=== PATIENT | female | born 1975 | race Caucasian/White ===

== ENCOUNTER → 2017-09-18 | Outpatient (CLI) | payer OTHER | END | disposition home or self-care (01) | LOC: LAB 18:06 | DX: H10.30 Unspecified acute conjunctivitis, unspecified eye (principal) | CPT/HCPCS: 87070; 87205 ==

== ENCOUNTER → 2019-01-28 | Outpatient (CLI) | payer OTHER ==
[~2019-01-28] MED LIST: ALBU90OI6; LEVFLO500 PO; LORA1 PO; Lopressor 25 mg25 MG
== END | disposition home or self-care (01) ==
LOC: LAB 17:56 → LAB SHORT 17:56
DX: D51.8 Other vitamin B12 deficiency anemias (principal)
CPT/HCPCS: 82607; 82746

== ENCOUNTER 2019-07-01 03:11 | Emergency (ER) | payer OTHER ==
[~2019-07-01] VITALS: Ht 170.2 cm; Wt 129.7 kg
[~2019-07-01 03:11] MED LIST changes: -Lopressor 25 mg25 MG; +Lopressor 25 mg25 MG PO
[2019-07-01 03:53] LABS: BASOPHILS ABSOLUTE AUTO 0.03 K/mm3 (0.00-0.23); BASOPHILS PERCENT AUTO 0 % (0-2); EOSINOPHILS ABSOLUTE AUTO 0.32 K/mm3 (0.00-0.68); EOSINOPHILS PERCENT AUTO 5 % (0-6); Hemoglobin 15.4 g/dL (11.5-16.0); IMMATURE GRAN ABSOLUTE AUTO 0.02 K/mm3 (0.00-0.10); IMMATURE GRAN PERCENT AUTO 0 % (0-1); LYMPHOCYTES ABSOLUTE AUTO 1.34 K/mm3 (0.84-5.20); LYMPHOCYTES PERCENT AUTO 20 % (21-46); MONOCYTES ABSOLUTE AUTO 0.45 K/mm3 (0.16-1.47); MONOCYTES PERCENT AUTO 7 % (4-13); Mean Corpuscular HGB 32.2 pg (26.0-34.0); Mean Corpuscular HGB Conc 32.8 g/dL (31.5-36.5); Mean Corpuscular Volume 98 fL (80-100); Mean Platelet Volume 10.2 fL (9.1-12.4); NEUTROPHILS ABSOLUTE AUTO 4.59 K/mm3 (1.96-9.15); NEUTROPHILS PERCENT AUTO 68 % (41-73); Platelet Count 237 K/mm3 (150-400); RDW Coefficient Variation 12.3 % (11.7-14.2); RDW Standard Deviation 44.8 fL (35.1-46.3); Red Blood Cell Count 4.79 M/mm3 (3.80-5.20); White Blood Cell Count 6.75 K/mm3 (4.00-11.30)
[2019-07-01 04:13] LABS: Alanine Aminotransfer (ALT/SGP 49 U/L (12-78); Albumin/Globulin Ratio 0.8 (0.8-1.8); Alk Phos 109 U/L (50-136); Anion Gap 6 mmol/L (6-16); Aspartate Aminotrans (AST/SGOT 34 U/L (12-37); Bilirubin, Total 0.3 mg/dL (0.1-1.0); Blood Urea Nitrogen 7 mg/dL (8-24); CO2, Blood 28 mmol/L (21-32); Calcium, Blood 8.6 mg/dL (8.5-10.1); Chloride, Blood 105 mmol/L (98-108); Free Thyroxine 1.05 ng/dL (0.70-1.60); Globulin, Blood 3.8 g/dL (2.2-4.0); Glomerular Filtration Rate >60 (60-); Glucose, Blood 99 mg/dL (70-99); Potassium, Blood 4.6 mmol/L (3.5-5.5); Sodium, Blood 139 mmol/L (136-145); Total Protein, Blood 6.8 g/dL (6.4-8.2); Troponin I <0.015 ng/mL (0.000-0.040)
== END 2019-07-01 05:18 | disposition home or self-care (01) ==
LOC: ER 03:11
PROVIDERS: Emergency Medicine
DX: R00.2 Palpitations (principal); F41.9 Anxiety disorder, unspecified; I10 Essential (primary) hypertension; J45.909 Unspecified asthma, uncomplicated; F17.210 Nicotine dependence, cigarettes, uncomplicated; Z88.1 Allergy status to other antibiotic agents; Z88.0 Allergy status to penicillin; Z88.2 Allergy status to sulfonamides; Z88.5 Allergy status to narcotic agent; Z79.899 Other long term (current) drug therapy
CPT/HCPCS: 36415; 80053; 84439; 84443; 84484; 85025; 93005; 93010; 96361; 96374; 99285-25; J2060; J7030

== ENCOUNTER → 2019-09-08 | Outpatient (CLI) | payer OTHER | LOC: LAB SHORT 07:55 → PLD 07:55 | DX: D23.62 Other benign neoplasm of skin of left upper limb, including shoulder (principal) | CPT/HCPCS: 88305 ==

== ENCOUNTER 2020-01-06 22:49 | Emergency (ER) | payer OTHER ==
[~2020-01-06] VITALS: Ht 170.2 cm; Wt 129.3 kg
[2020-01-06] MEDS ORDERED: LOSA50 PO (23:00)
[2020-01-06 23:27] LABS: BASOPHILS ABSOLUTE AUTO 0.02 K/mm3 (0.00-0.23); BASOPHILS PERCENT AUTO 0 % (0-2); EOSINOPHILS ABSOLUTE AUTO 0.29 K/mm3 (0.00-0.68); EOSINOPHILS PERCENT AUTO 4 % (0-6); Hematocrit 46.2 % (33.0-51.0); Hemoglobin 15.2 g/dL (11.5-16.0); IMMATURE GRAN ABSOLUTE AUTO 0.01 K/mm3 (0.00-0.10); IMMATURE GRAN PERCENT AUTO 0 % (0-1); LYMPHOCYTES ABSOLUTE AUTO 1.54 K/mm3 (0.84-5.20); LYMPHOCYTES PERCENT AUTO 19 % (21-46); MONOCYTES ABSOLUTE AUTO 0.67 K/mm3 (0.16-1.47); MONOCYTES PERCENT AUTO 8 % (4-13); Mean Corpuscular HGB 31.4 pg (26.0-34.0); Mean Corpuscular HGB Conc 32.9 g/dL (31.5-36.5); Mean Corpuscular Volume 96 fL (80-100); NEUTROPHILS PERCENT AUTO 69 % (41-73); Platelet Count 254 K/mm3 (150-400); RDW Coefficient Variation 13.3 % (11.7-14.2); RDW Standard Deviation 47.4 fL (35.1-46.3); Red Blood Cell Count 4.84 M/mm3 (3.80-5.20); White Blood Cell Count 8.13 K/mm3 (4.00-11.30)
[2020-01-06 23:47] LABS: Alanine Aminotransfer (ALT/SGP 43 U/L (12-78); Albumin, Blood 3.1 g/dL (3.4-5.0); Albumin/Globulin Ratio 0.7 (0.8-1.8); Alk Phos 105 U/L (50-136); Anion Gap 9 mmol/L (6-16); Aspartate Aminotrans (AST/SGOT 29 U/L (12-37); Bilirubin, Total 0.5 mg/dL (0.1-1.0); Blood Urea Nitrogen 8 mg/dL (8-24); Bun/Creatinine Ratio 12.2 (12.0-20.0); CO2, Blood 21 mmol/L (21-32); Calcium, Blood 8.3 mg/dL (8.5-10.1); Chloride, Blood 109 mmol/L (98-108); Creatinine, Blood 0.65 mg/dL (0.40-1.00); Globulin, Blood 4.3 g/dL (2.2-4.0); Glomerular Filtration Rate >60 (60-); Glucose, Blood 81 mg/dL (70-99); Potassium, Blood 4.2 mmol/L (3.5-5.5); Sodium, Blood 139 mmol/L (136-145); Total Protein, Blood 7.4 g/dL (6.4-8.2); Troponin I <0.015 ng/mL (0.000-0.040)
== END 2020-01-07 02:51 | disposition home or self-care (01) ==
LOC: ER 22:49
PROVIDERS: Emergency Medicine
DX: R00.2 Palpitations (principal); I10 Essential (primary) hypertension; I48.91 Unspecified atrial fibrillation; D64.9 Anemia, unspecified; J45.909 Unspecified asthma, uncomplicated; F17.210 Nicotine dependence, cigarettes, uncomplicated; Z88.1 Allergy status to other antibiotic agents; Z88.8 Allergy status to other drugs, medicaments and biological substances; Z88.0 Allergy status to penicillin; Z88.2 Allergy status to sulfonamides; Z88.5 Allergy status to narcotic agent; Z79.899 Other long term (current) drug therapy; Z79.51 Long term (current) use of inhaled steroids
CPT/HCPCS: 36415; 71046; 80053; 84484; 85025; 93005; 93010; 99285-25

== ENCOUNTER 2020-12-03 02:22 | Emergency (ER) | payer OTHER ==
[~2020-12-03] VITALS: Ht 170.2 cm; Wt 136.1 kg
[~2020-12-03 02:22] MED LIST changes: +LOSA50 PO
[2020-12-03 02:51] LABS: Anion Gap 6 mmol/L (6-16); Blood Urea Nitrogen 7 mg/dL (8-24); Bun/Creatinine Ratio 11.6 (12.0-20.0); CO2, Blood 24 mmol/L (21-32); Calcium, Blood 8.6 mg/dL (8.5-10.1); Chloride, Blood 103 mmol/L (98-108); Creatinine, Blood 0.61 mg/dL (0.40-1.00); Glomerular Filtration Rate >60 (60-); Glucose, Blood 135 mg/dL (70-99); Potassium, Blood 4.3 mmol/L (3.5-5.5); Sodium, Blood 133 mmol/L (136-145)
[2020-12-03] MEDS ORDERED: Prednisone50 MG PO (04:19)
[2020-12-03] MEDS ORDERED: ALBU90OI INH (04:19)
== END 2020-12-03 05:03 | disposition home or self-care (01) ==
LOC: ER 02:22
PROVIDERS: Student in an Organized Health Care Education/Training Program
DX: I48.91 Unspecified atrial fibrillation (principal); J45.901 Unspecified asthma with (acute) exacerbation; I10 Essential (primary) hypertension; F17.210 Nicotine dependence, cigarettes, uncomplicated; Z88.2 Allergy status to sulfonamides; Z88.1 Allergy status to other antibiotic agents; Z88.0 Allergy status to penicillin; Z88.5 Allergy status to narcotic agent; Z79.899 Other long term (current) drug therapy
CPT/HCPCS: 36415; 80048; 93005; 93010; 94640; 96374; 99285-25; A9270-GY; J7512

== ENCOUNTER 2021-03-04 05:31 | Emergency (ER) | payer OTHER ==
[~2021-03-04] VITALS: Ht 170.2 cm; Wt 140.6 kg
[~2021-03-04 05:31] MED LIST changes: +ALBU90OI INH; +Prednisone50 MG PO
[2021-03-04 07:42] LABS: BASOPHILS ABSOLUTE AUTO 0.04 K/mm3 (0.00-0.23); BASOPHILS PERCENT AUTO 1 % (0-2); EOSINOPHILS PERCENT AUTO 2 % (0-6); Hematocrit 41.9 % (33.0-51.0); Hemoglobin 13.5 g/dL (11.5-16.0); IMMATURE GRAN ABSOLUTE AUTO 0.03 K/mm3 (0.00-0.10); IMMATURE GRAN PERCENT AUTO 0 % (0-1); LYMPHOCYTES ABSOLUTE AUTO 1.09 K/mm3 (0.84-5.20); LYMPHOCYTES PERCENT AUTO 13 % (21-46); MONOCYTES ABSOLUTE AUTO 0.61 K/mm3 (0.16-1.47); MONOCYTES PERCENT AUTO 7 % (4-13); Mean Corpuscular HGB 28.2 pg (26.0-34.0); Mean Corpuscular HGB Conc 32.2 g/dL (31.5-36.5); Mean Corpuscular Volume 88 fL (80-100); Mean Platelet Volume 9.9 fL (9.1-12.4); NEUTROPHILS ABSOLUTE AUTO 6.35 K/mm3 (1.96-9.15); NEUTROPHILS PERCENT AUTO 76 % (41-73); Platelet Count 268 K/mm3 (150-400); RDW Coefficient Variation 14.6 % (11.7-14.2); RDW Standard Deviation 46.6 fL (35.1-46.3); Red Blood Cell Count 4.79 M/mm3 (3.80-5.20); White Blood Cell Count 8.32 K/mm3 (4.00-11.30)
== END 2021-03-04 08:27 | disposition home or self-care (01) ==
LOC: ER 05:31
PROVIDERS: Emergency Medicine
DX: R04.0 Epistaxis (principal); I48.91 Unspecified atrial fibrillation; F17.210 Nicotine dependence, cigarettes, uncomplicated; Z79.899 Other long term (current) drug therapy; Z88.1 Allergy status to other antibiotic agents; Z88.0 Allergy status to penicillin; Z88.2 Allergy status to sulfonamides; Z88.5 Allergy status to narcotic agent
CPT/HCPCS: 36415; 85025; 99283

== ENCOUNTER 2021-04-15 20:26 | Emergency (ER) | payer OTHER ==
[~2021-04-15] VITALS: Ht 170.2 cm; Wt 136.1 kg
[2021-04-15 21:06] LABS: BASOPHILS ABSOLUTE AUTO 0.03 K/mm3 (0.00-0.23); BASOPHILS PERCENT AUTO 0 % (0-2); EOSINOPHILS ABSOLUTE AUTO 0.16 K/mm3 (0.00-0.68); EOSINOPHILS PERCENT AUTO 2 % (0-6); Hematocrit 42.4 % (33.0-51.0); Hemoglobin 13.4 g/dL (11.5-16.0); IMMATURE GRAN ABSOLUTE AUTO 0.02 K/mm3 (0.00-0.10); IMMATURE GRAN PERCENT AUTO 0 % (0-1); LYMPHOCYTES ABSOLUTE AUTO 1.41 K/mm3 (0.84-5.20); LYMPHOCYTES PERCENT AUTO 19 % (21-46); MONOCYTES ABSOLUTE AUTO 0.43 K/mm3 (0.16-1.47); MONOCYTES PERCENT AUTO 6 % (4-13); Mean Corpuscular HGB 27.2 pg (26.0-34.0); Mean Corpuscular HGB Conc 31.6 g/dL (31.5-36.5); Mean Corpuscular Volume 86 fL (80-100); Mean Platelet Volume 9.9 fL (9.1-12.4); NEUTROPHILS ABSOLUTE AUTO 5.54 K/mm3 (1.96-9.15); NEUTROPHILS PERCENT AUTO 73 % (41-73); Platelet Count 326 K/mm3 (150-400); RDW Coefficient Variation 14.7 % (11.7-14.2); RDW Standard Deviation 46.8 fL (35.1-46.3); Red Blood Cell Count 4.92 M/mm3 (3.80-5.20); White Blood Cell Count 7.59 K/mm3 (4.00-11.30)
[2021-04-15 21:51] LABS: Alanine Aminotransfer (ALT/SGP 44 U/L (12-78); Albumin, Blood 2.8 g/dL (3.4-5.0); Albumin/Globulin Ratio 0.6 (0.8-1.8); Alk Phos 117 U/L (50-136); Anion Gap 6 mmol/L (6-16); Aspartate Aminotrans (AST/SGOT 35 U/L (12-37); Bilirubin, Total 0.3 mg/dL (0.1-1.0); Blood Urea Nitrogen 7 mg/dL (8-24); Bun/Creatinine Ratio 10.4 (12.0-20.0); CO2, Blood 27 mmol/L (21-32); Calcium, Blood 9.1 mg/dL (8.5-10.1); Chloride, Blood 101 mmol/L (98-108); Creatinine, Blood 0.67 mg/dL (0.40-1.00); Globulin, Blood 4.5 g/dL (2.2-4.0); Glomerular Filtration Rate >60 (60-); Glucose, Blood 108 mg/dL (70-99); Potassium, Blood 4.3 mmol/L (3.5-5.5); Sodium, Blood 134 mmol/L (136-145); Total Protein, Blood 7.3 g/dL (6.4-8.2); Troponin I <0.015 ng/mL (0.000-0.040)
== END 2021-04-15 22:18 | disposition home or self-care (01) ==
LOC: ER 20:26
PROVIDERS: Family Medicine
DX: I48.91 Unspecified atrial fibrillation (principal); F17.210 Nicotine dependence, cigarettes, uncomplicated; I10 Essential (primary) hypertension; J45.909 Unspecified asthma, uncomplicated; Z79.899 Other long term (current) drug therapy; Z88.1 Allergy status to other antibiotic agents; Z88.0 Allergy status to penicillin; Z88.2 Allergy status to sulfonamides; Z88.5 Allergy status to narcotic agent
CPT/HCPCS: 71045; 80053; 83880; 84484; 85025; 93005; 93010; 99285-25

== ENCOUNTER 2021-06-18 10:40 | Emergency (ER) | payer OTHER ==
[~2021-06-18] VITALS: Ht 170.2 cm; Wt 136.1 kg
[2021-06-18] MEDS ORDERED: DILT30 PO (11:03)
[2021-06-18 11:45] LABS: BASOPHILS ABSOLUTE AUTO 0.05 K/mm3 (0.00-0.23); BASOPHILS PERCENT AUTO 1 % (0-2); EOSINOPHILS ABSOLUTE AUTO 0.38 K/mm3 (0.00-0.68); EOSINOPHILS PERCENT AUTO 4 % (0-6); Hematocrit 44.5 % (33.0-51.0); Hemoglobin 13.7 g/dL (11.5-16.0); IMMATURE GRAN ABSOLUTE AUTO 0.03 K/mm3 (0.00-0.10); IMMATURE GRAN PERCENT AUTO 0 % (0-1); LYMPHOCYTES ABSOLUTE AUTO 1.31 K/mm3 (0.84-5.20); LYMPHOCYTES PERCENT AUTO 14 % (21-46); MONOCYTES ABSOLUTE AUTO 0.64 K/mm3 (0.16-1.47); MONOCYTES PERCENT AUTO 7 % (4-13); Mean Corpuscular HGB Conc 30.8 g/dL (31.5-36.5); Mean Corpuscular Volume 88 fL (80-100); Mean Platelet Volume 10.3 fL (9.1-12.4); NEUTROPHILS ABSOLUTE AUTO 6.74 K/mm3 (1.96-9.15); NEUTROPHILS PERCENT AUTO 74 % (41-73); Platelet Count 340 K/mm3 (150-400); RDW Standard Deviation 48.1 fL (35.1-46.3); Red Blood Cell Count 5.08 M/mm3 (3.80-5.20); White Blood Cell Count 9.15 K/mm3 (4.00-11.30)
[2021-06-18 12:17] LABS: Alanine Aminotransfer (ALT/SGP 36 U/L (12-78); Albumin, Blood 2.9 g/dL (3.4-5.0); Albumin/Globulin Ratio 0.7 (0.8-1.8); Alk Phos 113 U/L (50-136); Anion Gap 4 mmol/L (6-16); Aspartate Aminotrans (AST/SGOT 31 U/L (12-37); Bilirubin, Total 0.4 mg/dL (0.1-1.0); Blood Urea Nitrogen 5 mg/dL (8-24); CO2, Blood 27 mmol/L (21-32); Calcium, Blood 8.8 mg/dL (8.5-10.1); Chloride, Blood 105 mmol/L (98-108); Creatinine, Blood 0.72 mg/dL (0.40-1.00); Globulin, Blood 4.4 g/dL (2.2-4.0); Glomerular Filtration Rate >60 (60-); Glucose, Blood 147 mg/dL (70-99); Magnesium, Blood 1.9 mg/dL (1.6-2.4); Potassium, Blood 4.6 mmol/L (3.5-5.5); Sodium, Blood 136 mmol/L (136-145); Total Protein, Blood 7.3 g/dL (6.4-8.2); Troponin I <0.015 ng/mL (0.000-0.040)
== END 2021-06-18 13:40 | disposition home or self-care (01) ==
LOC: ER 10:40
PROVIDERS: Emergency Medicine
DX: I48.0 Paroxysmal atrial fibrillation (principal); D64.9 Anemia, unspecified; J45.909 Unspecified asthma, uncomplicated; I10 Essential (primary) hypertension; F17.210 Nicotine dependence, cigarettes, uncomplicated; Z79.899 Other long term (current) drug therapy
CPT/HCPCS: 71045; 80053; 83735; 83880; 84484; 85025; 93005; 93010; 99285-25

== ENCOUNTER → 2023-12-14 | Outpatient (CLI) | payer OTHER ==
[~2023-12-14] MED LIST changes: +DILT30 PO
[2023-12-14 17:28] LABS: BASOPHILS ABSOLUTE AUTO 0.05 K/mm3 (0.00-0.23); BASOPHILS PERCENT AUTO 1 % (0-2); EOSINOPHILS ABSOLUTE AUTO 0.28 K/mm3 (0.00-0.68); EOSINOPHILS PERCENT AUTO 3 % (0-6); Hematocrit 38.8 % (33.0-51.0); Hemoglobin 10.9 g/dL (11.5-16.0); IMMATURE GRAN ABSOLUTE AUTO 0.02 K/mm3 (0.00-0.10); IMMATURE GRAN PERCENT AUTO 0 % (0-1); LYMPHOCYTES PERCENT AUTO 19 % (21-46); MONOCYTES ABSOLUTE AUTO 0.61 K/mm3 (0.16-1.47); MONOCYTES PERCENT AUTO 7 % (4-13); Mean Corpuscular HGB Conc 28.1 g/dL (31.5-36.5); Mean Corpuscular Volume 75 fL (80-100); Mean Platelet Volume 10.5 fL (9.1-12.4); NEUTROPHILS ABSOLUTE AUTO 6.32 K/mm3 (1.96-9.15); NEUTROPHILS PERCENT AUTO 70 % (41-73); Platelet Count 391 K/mm3 (150-400); RDW Standard Deviation 47.8 fL (35.1-46.3); Red Blood Cell Count 5.19 M/mm3 (3.80-5.20); White Blood Cell Count 8.98 K/mm3 (4.00-11.30)
[2023-12-14 17:38] LABS: Albumin, Blood 3.3 g/dL (3.4-5.0); Albumin/Globulin Ratio 0.7 (0.8-1.8); Bilirubin, Total 0.4 mg/dL (0.1-1.0); Bun/Creatinine Ratio 17.2 (12.0-20.0); Calcium, Blood 9.6 mg/dL (8.5-10.1); Creatinine, Blood 0.7 mg/dL (0.40-1.00); Globulin, Blood 4.5 g/dL (2.2-4.0); Potassium, Blood 5.2 mmol/L (3.5-5.5); Thyroid Stimulating Hormone 2.31 uIU/mL (0.360-4.800); Total Protein, Blood 7.8 g/dL (6.4-8.2)
== END ==
LOC: LAB 16:01 → LAB SHORT 16:01
PROVIDERS: Nurse Practitioner Psychiatric/Mental Health
DX: F33.1 Major depressive disorder, recurrent, moderate (principal)
CPT/HCPCS: 80053; 84443; 85025

== ENCOUNTER → 2024-02-19 | Outpatient (CLI) | payer OTHER ==
[~2024-02-19] MED LIST changes: +MICONAZOLE NITR85 GM TOP; +NICO21TP TOP; +OXAYDO5 M1 PO; +THEREMS MULTI400 MCG PO; +TORSE20 PO; +XARELTO20 MG PO
== END | disposition home or self-care (01) ==
LOC: LAB SHORT 13:42 → LAB 13:42
DX: R21 Rash and other nonspecific skin eruption (principal)
CPT/HCPCS: 87070; 87075; 87076; 87077; 87147; 87185; 87205

== ENCOUNTER 2024-02-24 05:14 | Inpatient (IN) | payer OTHER ==
[~2024-02-24] VITALS: Ht 167.6 cm; Wt 143.6 kg
[~2024-02-24 05:14] MED LIST changes: -MICONAZOLE NITR85 GM TOP; -NICO21TP TOP; -OXAYDO5 M1 PO; -THEREMS MULTI400 MCG PO; -TORSE20 PO; -XARELTO20 MG PO
[2024-02-24 06:09] LABS: BASOPHILS ABSOLUTE AUTO 0.04 K/mm3 (0.00-0.23); BASOPHILS PERCENT AUTO 0 % (0-2); EOSINOPHILS ABSOLUTE AUTO 0.26 K/mm3 (0.00-0.68); EOSINOPHILS PERCENT AUTO 3 % (0-6); Hematocrit 30.4 % (33.0-51.0); Hemoglobin 8.9 g/dL (11.5-16.0); IMMATURE GRAN ABSOLUTE AUTO 0.02 K/mm3 (0.00-0.10); IMMATURE GRAN PERCENT AUTO 0 % (0-1); LYMPHOCYTES ABSOLUTE AUTO 1.59 K/mm3 (0.84-5.20); LYMPHOCYTES PERCENT AUTO 18 % (21-46); MONOCYTES ABSOLUTE AUTO 0.47 K/mm3 (0.16-1.47); MONOCYTES PERCENT AUTO 5 % (4-13); Mean Corpuscular HGB 21.2 pg (26.0-34.0); Mean Corpuscular HGB Conc 29.3 g/dL (31.5-36.5); Mean Corpuscular Volume 72 fL (80-100); Mean Platelet Volume 9.4 fL (9.1-12.4); NEUTROPHILS ABSOLUTE AUTO 6.67 K/mm3 (1.96-9.15); NEUTROPHILS PERCENT AUTO 74 % (41-73); Platelet Count 440 K/mm3 (150-400); RDW Coefficient Variation 18.5 % (11.7-14.2); RDW Standard Deviation 48.1 fL (35.1-46.3); White Blood Cell Count 9.05 K/mm3 (4.00-11.30)
[2024-02-24 06:36] LABS: Albumin, Blood 2.6 g/dL (3.4-5.0); Albumin/Globulin Ratio 0.6 (0.8-1.8); Bilirubin, Total 0.3 mg/dL (0.1-1.0); Bun/Creatinine Ratio 13.4 (12.0-20.0); Calcium, Blood 8.2 mg/dL (8.5-10.1); Creatinine, Blood 0.6 mg/dL (0.40-1.00); Globulin, Blood 4.1 g/dL (2.2-4.0); Potassium, Blood 4.7 mmol/L (3.5-5.5); Total Protein, Blood 6.7 g/dL (6.4-8.2)
[2024-02-24] MEDS ORDERED: Ipratropium/Albuterol SulF 2.5-0.5MG/3 ML Amp INH ONE (07:30)
[2024-02-24] MEDS ORDERED: Ondansetron HCl 2 MG / ML 2ML Vial IV ONE (11:05)
[2024-02-24] MEDS ORDERED: HYDROmorphone HCl/Pf 1MG SYR IV ONE (11:05)
[2024-02-24] MEDS ORDERED: XARELTO20 MG PO (12:22)
[2024-02-24] MEDS ORDERED: FentaNYL Citrate 50 MCG/ML 2 ML Injection IV PRN (12:35)
[2024-02-24] MEDS ORDERED: LORazepam 1 MG Tab PO PRN (12:35)
[2024-02-24 12:54] LABS: International Normalized Ratio 1.3; Prothrombin Time Results 13.6 Sec (9.7-11.5)
[2024-02-24] MEDS ORDERED: dilTIAZem HCL 30 MG TAB PO SCH (13:00)
[2024-02-24] MEDS ORDERED: Metoprolol Tartrate 50 MG Tab PO SCH ×3 (13:00→21:00)
[2024-02-24] MEDS ORDERED: Dose Adjust by Pharmacy XX STA (13:02)
[2024-02-24] MEDS ORDERED: Heparin Sodium,Porcine/0.5 NS 500 ML IV SCH (13:05)
[2024-02-24] MEDS ORDERED: NS 1,000 ML IV SCH ×2 (14:00→21:15)
[2024-02-24 14:30] VITALS: BP 112/71
[2024-02-24] MEDS ORDERED: Famotidine 20 MG Tab PO SCH (16:30)
[2024-02-24 19:40] VITALS: BP 122/53
[2024-02-24] MEDS ORDERED: TORSE20 PO (19:48)
[2024-02-24] MEDS ORDERED: Heparin Sodium 5000 Units/ML 1ML MDV IV ONE (20:30)
[2024-02-24] MEDS ORDERED: Multivitamins 1 Tab PO ONE (20:45)
[2024-02-24] MEDS ORDERED: Folic Acid 1 MG TAB PO ONE (20:45)
[2024-02-24] MEDS ORDERED: Nicotine 21 MG PATCH TOP ONE (20:45)
[2024-02-24] MEDS ORDERED: Thiamine HCl 100 MG Tab PO ONE (20:45)
[2024-02-24] MEDS ORDERED: Miconazole Nitrate 2% 85 GM PWD TOP SCH (21:00)
[2024-02-24 23:51] VITALS: BP 116/77
[2024-02-25] MEDS ORDERED: FentaNYL Citrate 50 MCG/ML 2 ML Injection IV PRN (00:05)
--- NOTE | 2024-02-25 00:35 | NUR ---
PT IS ALERT AND ORIENTED X 4, COOPERATIVE WITH CARE AND ABLE TO MAKE NEEDS KNOWN. ANXIOUS AT TIMES. WHEN AWAKE PT ON 1.5L NC AND MAINTAINS 02 SATURATION ABOVE 90%. 1.5L NC IS PTS BASELINE AT HOME NOC AND PRN DURING DAY. PT DESATS WHILE SLEEPING AT TIMES, 4L NC WHEN ASLEEP AND MAINTAINS 02 SATURATION ABOVE 90%. PT'S HR AFIB 80'S-90'S, SHE DENIES CHEST PAIN/PRESSURE, BP STABLE. THE MAJORITY OF PT'S HOME MEDS ARE BEING STARTED TMR PER BC PT EXPERIENCED PAUSES IN HER HR WHILE IN ED. PT'S HOME MED REQ IS COMPLETE. PT BROUGHT HER MEDICATIONS IN WITH HER AND SAID THEY ARE ALL UP TO DATE. PT IS CONTINENT AND TOLERATES AMBULATING TO RESTROOM WITH SBA ASSIST WELL. TOES TO R FOOT ARE PURPLE AND PAINFUL. OF NOW, THE PLAN IS FOR PT TO SEE CRUZITO THIS WEEK IN HOSPITAL. PT BEING MEDICATED PER EMAR. BOTH IVS PATENT AND RUNNING HEPARIN AND NS PER EMAR. PT IS A PACK A DAY SMOKER AND SHE IS BEING MEDICATED PER EMAR. PT DRINKS 9-10 BEERS A DAY AND THE LAST TIME SHE HAD A DRINK WAS BETWEEN THE HOURS OF 7-10PM ON 02/23/24. SPOKE WITH MD AND HE OK'D STARTING TO GIVE PT BEER TOMORROW SHE SAID SHE DOES NOT PLAN TO QUIT ANY TIME SOON. RESPIRATORY THERAPY ON BOARD TREATING PT. PTS CIWA SCORES HAVE BEEN 0-2. PT CURRENTLY RESTING IN BED AND CALL LIGHT WITHIN REACH.
[2024-02-25] MEDS ORDERED: Ondansetron HCl 2 MG / ML 2ML Vial IV PRN (03:00)
[2024-02-25] MEDS ORDERED: OxyCODONE HCL 5 MG TAB PO PRN (03:00)
--- NOTE | 2024-02-25 03:02 | NUR ---
25-50MCG FETANYL ISN'T RELIEVING PT'S PAIN WELL SHE WOULD LIKE, SHE IS STILL IN A LOT OF PAIN. CALLED AND SPOKE WITH MD AND RELAYED TO HIM THAT PT DID NOT LIKE THE WAY DILAUDED MADE HER FEEL WHEN SHE HAD IT IN THE ER, AND CODEINE AND HYDROCODONE ARE ON HER ALLERGY LIST, WHICH SHE SAID THEY JUST MADE HER REALLY NAUSEOUS. MD ORDERED OXYCODONE FOR MODERATE PAIN, ZOFRAN AND LEAVING FETANYL AVAILABLE FOR SEVERE PAIN.
[2024-02-25 03:10] LABS: Hematocrit 31.3 % (33.0-51.0); Mean Corpuscular HGB 21.2 pg (26.0-34.0); Mean Corpuscular HGB Conc 28.8 g/dL (31.5-36.5); Mean Corpuscular Volume 74 fL (80-100); Mean Platelet Volume 9.3 fL (9.1-12.4); Platelet Count 382 K/mm3 (150-400); RDW Coefficient Variation 18.6 % (11.7-14.2); RDW Standard Deviation 49.4 fL (35.1-46.3); Red Blood Cell Count 4.25 M/mm3 (3.80-5.20); White Blood Cell Count 8.32 K/mm3 (4.00-11.30)
[2024-02-25 03:33] LABS: Bun/Creatinine Ratio 17.7 (12.0-20.0); Calcium, Blood 8.3 mg/dL (8.5-10.1); Creatinine, Blood 0.79 mg/dL (0.40-1.00); Potassium, Blood 4.4 mmol/L (3.5-5.5)
[2024-02-25] MEDS ORDERED: Dose Adjust by Pharmacy XX STA ×3 (03:37→18:36)
[2024-02-25] MEDS ORDERED: Heparin Sodium 5000 Units/ML 1ML MDV IV ONE (03:40)
--- NOTE | 2024-02-25 05:04 | NUR ---
PT DECIDED SHE WANTED TO WAIT FOR NEXT DOSE OF FETANYL BEFORE TRYING OXYCODONE. PT RECEIVED ANOTHER 50MCG FETANYL PER EMAR. SHE HAS BEEN RESTING IN BED SINCE. SHE REMAINS ON 4L NC AND MAINTAINING 02 SATURATION ABOVE 92%, SHE DENIES SOB. HR REMAINS IN AFIB, BP STABLE, AND NO COMPLAINS OF CHEST PAIN/PRESSURE. TOES TO R FOOT REMAIN DISCOLORED BUT WARM. PEDAL PULSES FAINT BUT PALPABLE. BOTH IV'S REMAIN PATENT,HEPARIN AND NS RUNNING PER EMAR. CALL LIGHT WITHIN REACH.
[2024-02-25 07:53] VITALS: BP 134/73
[2024-02-25] MEDS ORDERED: dilTIAZem HCL 30 MG TAB PO SCH (09:00)
[2024-02-25] MEDS ORDERED: Losartan Potassium 50 MG Tab PO SCH (09:00)
[2024-02-25] MEDS ORDERED: Multivitamins 1 Tab PO SCH (09:00)
[2024-02-25] MEDS ORDERED: Metoprolol Tartrate 50 MG Tab PO SCH (09:00)
[2024-02-25] MEDS ORDERED: Folic Acid 1 MG TAB PO SCH (09:00)
[2024-02-25] MEDS ORDERED: Torsemide 20 MG TAB PO SCH (09:00)
[2024-02-25] MEDS ORDERED: Thiamine HCl 100 MG Tab PO SCH (09:00)
[2024-02-25] MEDS ORDERED: Metoprolol Tartrate 25 MG Tab PO SCH ×2 (09:30→21:00)
[2024-02-25 11:24] VITALS: BP 111/61
--- NOTE | 2024-02-25 12:09 | NUR ---
ECHO IN TO SEE PT.
--- NOTE | 2024-02-25 12:56 | NUR ---
CIWA PT STARTING TO HAVE TREMORS, FEELS SWEATY, CIWA SCORE WAS 9. NOTIFIED DR BLACK. AWAITING ORDERS.
[2024-02-25] MEDS ORDERED: LORazepam 2 MG/ML 1ML Injection IV PRN (13:00)
[2024-02-25] MEDS ORDERED: ChlordiazePOXIDE 25 MG Cap PO PRN (13:00)
[2024-02-25 16:56] VITALS: BP 107/67
--- NOTE | 2024-02-25 17:05 | NUR ---
SUMMARY PT SLEEPING AT THIS TIME. AWAKES TO VOICE BUT RETURNS QUICKLY TO SLEEP. STATED HAS NOT SLEPT WELL FOR "ABOUT A MONTH". THIS AFTERNOON, PT BEGAN EXHIBITING SIGNS OF ALCOHOL WITHDRAWAL, CIWA SCORE WAS 9. NOTIFIED DR BLACK AND OBTAINED ORDERS. ADMINISTERED 25 MG LIBRIUM PER ORDERS. PT ALSO REQUESTED PO ATIVAN HAS ORDERED PRN FOR ANXIETY, WHICH WAS ADMINISTERED. PT HAS BEEN SLEEPING T/O AFTERNOON. VSS. PLAN TO MAKE NPO AT [facility] FOR PLANNED REVASC TOMORROW TO FOOT. CALL LIGHT IN REACH.
--- NOTE | 2024-02-25 18:31 | NUR ---
CIWA PT CALLED AND REQUESTED MED FOR WITHDRAWAL. RATED CIWA AT 9. ADMINISTERED LIBRIUM PER ORDERS. SHORTLY AFTER ADMINISTERING LIBRIUM, PT REPORTED NAUSEA AND PAULSON AND BECAME TEARFUL. REASSESSED CIWA AT 14. MEDICATED PER ORDERAS W/1 MG IV ATIVAN. PT RESTING IN BED, CALL LIGHT IN REACH.
[2024-02-25 20:05] VITALS: BP 134/81
[2024-02-25] MEDS ORDERED: Nicotine 21 MG PATCH TOP SCH (21:00)
[2024-02-25 23:14] VITALS: BP 123/84
[2024-02-26] VITALS (14 sets, daily range): BP systolic 98–143; BP diastolic 61–86
[2024-02-26 02:14] LABS: Hematocrit 30.8 % (33.0-51.0); Hemoglobin 8.7 g/dL (11.5-16.0); Mean Corpuscular HGB 21.3 pg (26.0-34.0); Mean Corpuscular HGB Conc 28.2 g/dL (31.5-36.5); Mean Corpuscular Volume 75 fL (80-100); Platelet Count 407 K/mm3 (150-400); RDW Coefficient Variation 18.4 % (11.7-14.2); RDW Standard Deviation 50.4 fL (35.1-46.3); Red Blood Cell Count 4.09 M/mm3 (3.80-5.20); White Blood Cell Count 8.34 K/mm3 (4.00-11.30)
[2024-02-26 02:36] LABS: Bun/Creatinine Ratio 12.9 (12.0-20.0); Calcium, Blood 8.3 mg/dL (8.5-10.1); Creatinine, Blood 0.85 mg/dL (0.40-1.00); Potassium, Blood 6.2 mmol/L (3.5-5.5)
[2024-02-26] MEDS ORDERED: Dose Adjust by Pharmacy XX STA ×3 (02:50→21:51)
[2024-02-26] MEDS ORDERED: Heparin Sodium 5000 Units/ML 1ML MDV IV ONE (02:55)
[2024-02-26] MEDS ORDERED: Insulin Regular 100 UNIT/ML 10ML Vial IV ONE ×2 (03:23→06:13)
[2024-02-26] MEDS ORDERED: Dextrose 50% 50 ML Syringe IV ONE ×2 (03:25→07:00)
--- NOTE | 2024-02-26 05:18 | NUR ---
PT'S CIWA 0 WHEN ASLEEP AND 11-14 WHEN AWAKE. PT MEDICATED PER EMAR. SHE IS ON 4L NC AND MAINTAINING 02 SATURATION ABOVE 92%. SHE DENIES SOB. HR ST 110'S, SHE DENIES CHEST PAIN/PRESSURE AND BP STABLE. PT TOLERATES AMBULATING TO RESTROOM WITH SBA WELL. MORNING LABS POTASSIUM RESULTED 6.2, PT'S L FOOT HAS BECOME SLIGHTLY MORE SWOLLEN WELL. MD NOTIFIED, ORDERS PLACED, PT MEDICATED PER EMAR. LAB'S RE-DRAWN TO SEE IF POTASSIUM LEVEL BACK WITHIN NORMAL RANGE, AWAITING RESULTS. L TOES REMAIN DISCOLORED/PURPLE AND WARM, PEDAL PULSES PALPABLE BUT FAINT. PT RESTING IN BED, EVEN AND UNLABORED BREATHING. CALL LIGHT WITHIN REACH.
[2024-02-26 05:59] LABS: Bun/Creatinine Ratio 16.9 (12.0-20.0); Calcium, Blood 8.6 mg/dL (8.5-10.1); Creatinine, Blood 0.71 mg/dL (0.40-1.00); Potassium, Blood 6.3 mmol/L (3.5-5.5)
[2024-02-26] MEDS ORDERED: CALCIUM GLUC IN NACL, ISO-OSM 50 ML IV ONE (06:15)
[2024-02-26] MEDS ORDERED: Albuterol 2.5 MG/3 ML VIAL INH ONE (06:15)
[2024-02-26] MEDS ORDERED: Metoprolol Tartrate 25 MG Tab PO ONE (08:05)
[2024-02-26] MEDS ORDERED: PHENobarbitaL sodium 130 MG/ML VIAL IV STA (08:30)
[2024-02-26] MEDS ORDERED: PHENobarbitaL sodium 130 MG/ML VIAL IV PRN (08:35)
[2024-02-26] MEDS ORDERED: Metoprolol Tartrate 50 MG Tab PO SCH (09:00)
[2024-02-26] MEDS ORDERED: Sodium Zirconium Cyclosilicate 10 GM Packet PO SCH (09:00)
[2024-02-26] MEDS ORDERED: Sodium Chloride 1 GM TAB PO SCH (09:00)
[2024-02-26 09:36] LABS: Bun/Creatinine Ratio 12.9 (12.0-20.0); Creatinine, Blood 0.85 mg/dL (0.40-1.00); Potassium, Blood 4.6 mmol/L (3.5-5.5)
[2024-02-26] MEDS ORDERED: NS 250 ML IV ONE (11:18)
[2024-02-26] MEDS ORDERED: Nitroglycerin 2 MG/20 ML BTL ONE (11:19)
[2024-02-26] MEDS ORDERED: Heparin Sodium 1000 Units/ML 10ML MDV ONE ×2 (11:19)
[2024-02-26] MEDS ORDERED: NS 1,000 ML IV ONE ×2 (11:19→11:56)
[2024-02-26] MEDS ORDERED: Midazolam HCl 1MG / ML 2ML Vial ONE ×2 (12:00→12:04)
[2024-02-26] MEDS ORDERED: FentaNYL Citrate 50 MCG/ML 2 ML Injection ONE (12:00)
--- NOTE | 2024-02-26 12:30 | NUR ---
PT TO ELEVATOR INSPECTOR FOR REVASC.
--- NOTE | 2024-02-26 13:55 | NUR ---
PT BACK TO ROOM FROM DICTAPHONE TYPIST PT A&Ox4, CALLS AND COMMUNICATES NEEDS APPROPRIATELY. BP STABLE, SINUS 90's, DENIES CP/PRESSURE. CIWA 14 UPON ARRIVAL, MEDICATED PER EMAR. PT DROWSY AFTER PROCEDURE AND CIWA MANAGEMENT MEDICATIONS AND PT HAS TO LAY FLAT D/T R GROIN ACCESS. SpO2 TO 80's, INCREASED O2 TO 7L VIA NC, RT NOTIFED AND SET UP CPAP. SpO2> 92% ON CPAP WITH AVAPS SETTINGS AND 4L BLEED IN. R GROIN SITE WNL, NO BRUISING, BLEEDING, OR HEMATOMA. NON TENDER, SOFT TO TOUCH. BLE WARM TO TOUCH. CALL LIGHT IN REACH, BED IN LOWEST POSITION.
--- NOTE | 2024-02-26 16:08 | NUR ---
UPDATE PT STATING THAT THEY NEED TO VOID, REMINDED PT THAT SHE IS NOT ABLE TO STAND D/T R GROIN ACCESS NOT BEING FULLY RECOVERED. PT REFUSING TO USE BED COUCH AND REFUSING KATIE CARE PRIOR TO PUREWICK PLACEMENT. PT GETTING VERY AGITATED WITH THIS RN AND REFUSING PUREWICK PLACEMENT. AT START OF SHIFT THIS RN, WITH DR AT BEDSIDE, DISCUSSED THE PROGRESSION OF ETOH WITHDRAWAL AND EXPLAINED THAT THE SYMPTOMS WITH LIKELY PEAK TODAY. DISCUSSED WHAT SYMPTOMS TO EXPECT AND MEDICATION MANAGEMENT. THIS RN TRIED REMINDING PT OF THIS CONVERSATION AND THAT HER HIGHTENED ARE LIKELY D/T ETOH WITHDRAWAL; PT DIDN'T WANT TO HEAR ANYTHING THIS RN HAD TO SAY AND DEMANDED THIS RN TO LEAVE HER ROOM. MSW NOTIFIED AND TALKING WITH PT AT THIS TIME.
--- NOTE | 2024-02-26 17:57 | NUR ---
SHIFT SUMMARY SEE PREVIOUS NOTES. NO ACUTE CHANGES SINCE LAST NOTE. PT AGREEABLE WITH CARE AT THIS TIME. SpO2> 92% 4-7L VIA NC, DENIES SOB. BP STABLE, SINUS TACH 90-100's, DENIES CP/PRESSURE. R GROIN SITE WNL, NO BRUISING, BLEEDING, HEMATOMA PRESENT. SITE SOFT AND NON TENDER. PT TOLERATING SITTING AT 45 DEGREES. RETAINING URINE, NEW CATH PLACED PER MD ORDERS. MANAGED ETOH PER CIWA AND EMAR. NO OTHER EVENTS, WILL REPORT TO ONCOMING RN.
[2024-02-26] MEDS ORDERED: Sodium Zirconium Cyclosilicate 10 GM Packet PO ONE (19:00)
--- NOTE | 2024-02-26 21:36 | NUR ---
PT CURRENTLY RESTING. AT BEGINNING OF SHIFT CIWA SCORE OF 10, PT WAS MEDICATED PER EMAR. PT HAD REVASC PROCEDURE PERFORMED TODAY. SHE IS ON 5L NC AND MAINTAINING 02 SATURATION ABOVE 92%, SHE DENIES SOB. HR ST 110'S, BP STABLE AND SHE DENIES CHEST PAIN/PRESSURE. NEW CATHETER WAS PLACED DURING DAY SHIFT FOR ACUTE RETENTION PER DAY SHIFT NURSE. NEW IS DRAINING YELLOW URINE WITH GRAVITY. POST REVASC SITE HAS NO REDNESS, SWELLING, TENDERNESS, AND NO HEMATOMA. PT'S L FOOT PAINFUL. PEDAL PULSES PALPABLE YET FAINT. TOES STILL DISCOLORED BUT STILL WARM. PT RESTING WITH LIGHTS OFF AND CALL LIGHT WITHIN REACH. EVEN AND UNLABORED BREATHING.
[2024-02-27 03:52] VITALS: BP 126/81
[2024-02-27 04:19] LABS: Hematocrit 30.6 % (33.0-51.0); Hemoglobin 8.3 g/dL (11.5-16.0); Mean Corpuscular HGB 20.8 pg (26.0-34.0); Mean Corpuscular HGB Conc 27.1 g/dL (31.5-36.5); Mean Corpuscular Volume 77 fL (80-100); Mean Platelet Volume 9.2 fL (9.1-12.4); Platelet Count 403 K/mm3 (150-400); RDW Coefficient Variation 18.4 % (11.7-14.2); RDW Standard Deviation 51.1 fL (35.1-46.3); Red Blood Cell Count 3.99 M/mm3 (3.80-5.20); White Blood Cell Count 7.01 K/mm3 (4.00-11.30)
[2024-02-27] MEDS ORDERED: Clarify Drug Order XX ONE (04:35)
[2024-02-27 05:02] LABS: Bun/Creatinine Ratio 11.4 (12.0-20.0); Calcium, Blood 8.9 mg/dL (8.5-10.1); Creatinine, Blood 0.7 mg/dL (0.40-1.00); Potassium, Blood 5.5 mmol/L (3.5-5.5)
--- NOTE | 2024-02-27 06:16 | NUR ---
NO ACUTE CHANGES THIS SHIFT. WHEN PT ASLEEP WITH UNLABORED AND EVEN BREATHING CIWA 0. WHEN PT AWAKE CIWA 10-19. PT MEDICATED PER EMAR. PT ON 5L NC AND MAINTAINING 02 SATURATION ABOVE 92%, SHE DENIES SOB. HR ST 100'S-110'S, SHE DENIES CHEST PAIN/PRESSURE, BP STABLE. PT SAID HER L FOOT IS A LITTLE LESS PAINFUL TONIGHT, BUT STILL PAINFUL. COLOR OF L TOES IMPROVING BUT STILL DISCOLORED. PEDAL PULSES REMAIN PALPABLE BUT FAINT. NEW CATHETER CONTINUES TO DRAIN YELLOW URINE WITH GRAVITY. R GROIN SITE CONTINUES TO BE NON-TENDER, NO REDNESS OR SWELLING, AND NO HEMATOMA. POTASSIUM LEVEL DOWN TO HIGH SIDE OF NORMAL AT 5.5. SODIUM STILL LOW AT 128. PT RESTING IN BED WITH UNLABORED AND EVEN BREATHING. CALL LIGHT WITHIN REACH.
[2024-02-27 07:55] VITALS: BP 121/64
[2024-02-27 08:39] LABS: Hematocrit 30.5 % (33.0-51.0); Hemoglobin 8.4 g/dL (11.5-16.0); Mean Corpuscular HGB 21.2 pg (26.0-34.0); Mean Corpuscular HGB Conc 27.5 g/dL (31.5-36.5); Mean Corpuscular Volume 77 fL (80-100); Platelet Count 393 K/mm3 (150-400); RDW Coefficient Variation 18.5 % (11.7-14.2); RDW Standard Deviation 51.6 fL (35.1-46.3); Red Blood Cell Count 3.97 M/mm3 (3.80-5.20); White Blood Cell Count 7.95 K/mm3 (4.00-11.30)
[2024-02-27] MEDS ORDERED: Torsemide 20 MG TAB PO SCH (09:00)
[2024-02-27] MEDS ORDERED: Rivaroxaban 10 MG Tab PO SCH ×2 (09:00→21:00)
[2024-02-27] MEDS ORDERED: Metoprolol Tartrate 50 MG Tab PO SCH ×2 (09:00)
[2024-02-27 09:03] LABS: Bun/Creatinine Ratio 9.5 (12.0-20.0); Calcium, Blood 8.7 mg/dL (8.5-10.1); Creatinine, Blood 0.73 mg/dL (0.40-1.00); Percent Saturation 5.6 % (15.0-50.0); Potassium, Blood 5.1 mmol/L (3.5-5.5)
[2024-02-27 11:36] VITALS: BP 130/78
[2024-02-27] MEDS ORDERED: Iron Dextran 50 MG / ML 2ML Vial IV ONE ×2 (12:30→12:50)
[2024-02-27] MEDS ORDERED: Iron Dextran 975 MG in NS 250 ML IV ONE (14:00)
[2024-02-27 15:52] VITALS: BP 134/72
[2024-02-27] MEDS ORDERED: NS 250 ML IV PRN (17:15)
--- NOTE | 2024-02-27 18:18 | NUR ---
End of shift note At the start of the shift, Pt was very somnolent and would barely wake to verbal stimuli. CPAP was placed at this time. After approx an hour, Pt woke up and was irritated that staff was unable to wake her for breakfast and had placed the CPAP. Pt again became somnolent this afternoon. Staff attempted to wake Pt multiple times for lunch. Pt slept through her phone ringing. CPAP was again placed. Pt tolerated it for about 1 hour then pulled it off. notified. Ammonia labs were drawn, WNL. Dc d PO oxycodone. Pt did rouse more about 1600, IV test dose of iron was able to be given then. Pt is very irritable and frustrated with staff. Continues to complain of pain to LLE, requesting PRN meds regularly. CIWA scores have been less than 10 all shift. Pt is able to make needs known, call light is within reach.
[2024-02-27 19:56] VITALS: BP 130/76
[2024-02-27] MEDS ORDERED: Rivaroxaban 2.5 MG TABLET PO SCH (21:00)
[2024-02-27 23:54] VITALS: BP 133/78
[2024-02-28] VITALS (54 sets, daily range): BP systolic 106–156; BP diastolic 65–118
[2024-02-28 04:57] LABS: Hematocrit 29.8 % (33.0-51.0); Hemoglobin 8.2 g/dL (11.5-16.0); Mean Corpuscular HGB 21.1 pg (26.0-34.0); Mean Corpuscular HGB Conc 27.5 g/dL (31.5-36.5); Mean Corpuscular Volume 77 fL (80-100); Mean Platelet Volume 9.4 fL (9.1-12.4); Platelet Count 392 K/mm3 (150-400); RDW Coefficient Variation 18.3 % (11.7-14.2); RDW Standard Deviation 51.3 fL (35.1-46.3); Red Blood Cell Count 3.88 M/mm3 (3.80-5.20); White Blood Cell Count 7.12 K/mm3 (4.00-11.30)
[2024-02-28 05:22] LABS: Bun/Creatinine Ratio 10.9 (12.0-20.0); Calcium, Blood 9.1 mg/dL (8.5-10.1); Creatinine, Blood 0.82 mg/dL (0.40-1.00); Potassium, Blood 4.8 mmol/L (3.5-5.5)
--- NOTE | 2024-02-28 05:41 | NUR ---
SHIFT NOTE: PT ALERT AND ORIENTED AND ABLE TO USE CALL LIGHT TO MAKE HER NEEDS KNOWN. SHE IS ON TELE IN NSR 80S. DENIES CHEST PAIN/PRESSURE. SHE IS ON 5L NC WITH SPO2>90%. DENIES SOB AND USE OF CPAP. SHE HAS A NEW DRAINING TO GRAVITY. PT FREQUENTLY REPORTS PAIN WHEN SHE IS AWAKE. SEE EMAR FOR MEDICATION ADMINISTRATION. LEFT LOWER EXTRIMITY HAS PALPABLE PULSES AND SENSATION. PT RESTING WITH EVEN UNLABORED RESPIRATIONS WITH THE CALL LIGHT WITHIN REACH. WILL REPORT TO ONCOMING RN
[2024-02-28] MEDS ORDERED: Sodium Zirconium Cyclosilicate 10 GM Packet PO ONE (07:40)
[2024-02-28] MEDS ORDERED: OxyCODONE HCL 5 MG TAB PO PRN (08:15)
--- NOTE | 2024-02-28 08:46 | NUR ---
PT MEDICATED FOR PAIN AT 0835 WITH 5MG OXYCODONE. PT BECAME LETHARGIC AT 0945. MD NOTIFIED AND MD IN ROOM AT 0847. PT HAD EPISODE OF LETHARGY 02/26. PT WAKING TO PHYSICAL STIMULI AT THIS TIME.
[2024-02-28] MEDS ORDERED: Torsemide 20 MG TAB PO SCH (09:00)
[2024-02-28] MEDS ORDERED: Metoprolol Tartrate 50 MG Tab PO SCH (09:00)
[2024-02-28 09:07] LABS: PCO2 Arterial 71.8 mmHg (35-45); PO2 Arterial 61.6 mmHg (80-100); pH Blood Arterial 7.28 (7.35-7.45)
--- NOTE | 2024-02-28 09:16 | NUR ---
UPDATE MD NOTIFIED OF CRITICAL ABG RESULT. PT ON BIPAP AT THIS TIME. HOLDING PO MEDICATIONS.
--- NOTE | 2024-02-28 09:20 | NUR ---
PT REMOVING BIPAP. EDUCATED ON NEED FOR BIPAP. PT STATES "I REFUSE TO WEAR THIS" AFTER PT EDUCATED ON CO2 LEVEL AND NEED FOR BIPAP PT AGREES TO WEAR AT THIS TIME. PT HALLUCINATING CALLING FOR "MAIDA."
--- NOTE | 2024-02-28 10:25 | NUR ---
UPDATE PT REFUSING TO WEAR BIPAP. THIS RN, SENIOR MERCHANDISER AND ICU SENIOR MERCHANDISER ASSISTED BIPAP MASK BACK ONTO PT, PT HITTING AT STAFF YELLING "YOU ARE HITTING ME AND HURTING ME AND BRUISING ME, IM GOING TO LICHA YOU." UNABLE TO GET BIPAP MASK BACK ON PT. PT CURRENLTY ON 3L, OXYGEN SATURATION AT 93% ON 3L VIA NC. MD NOTIFIED. PLAN TO TRANSFER TO ICU FOR PRECEDEX GTT AND BIPAP.
--- NOTE | 2024-02-28 11:10 | NUR ---
UPDATE REPORT TO LEEANN SIMS TO ASSUME CARE. PT TRANSFERRED TO ICU 08 WITH ALL BELONGINGS BY MOTORIZED SQUAD CAPTAIN AND FLOAT RN. PT'S NOTIFIED OF PT TRANSFER TO ICU 08.
[2024-02-28] MEDS ORDERED: dilTIAZem HCL 30 MG TAB PO SCH (11:30)
[2024-02-28] MEDS ORDERED: Furosemide 10 MG/ML 4ML Vial IV SCH (13:00)
--- NOTE | 2024-02-28 13:13 | NUR ---
PT ARRIVAL.... PT ARRIVED TO THE UNIT AT 1100, PT IS LETHARGIC AND YELLS OUT AT STAFF WITH PERSONAL CARE AND MOVING HER. PT WAS ON 4L NC WITH O2 SATS 90-94% L/S DIM T/O. PRECEDEX DRIP WAS STARTED AT 0.4MCG/KG/HR WHICH WAS TITRATED UP Q15 MIN TO 1.0MCG/KG/HR. PT WAS PLACED ON THE BIPAP AT 1130 16/8 AND 30% AT 1130. AT 1248 PT CONVERTED FROM SR IN THE 80'S-90'S TO AFIB IN THE 70'S-90'S. BP IS STABLE WITH MAPS>65. SITTER IS AT THE BEDSIDE. WILL CONTINUE TO MONITOR.
[2024-02-28] MEDS ORDERED: Dose Adjust by Pharmacy XX STA ×4 (13:51→21:24)
[2024-02-28] MEDS ORDERED: Heparin Sodium,Porcine/0.5 NS 500 ML IV SCH (13:55)
--- NOTE | 2024-02-28 17:08 | NUR ---
SHIFT SUMMARY.... NO ACUTE NEGATIVE CHANGES NOTED THIS SHIFT. PT CONTINUES TO BE ON A PRECEDEX DRIP AT 1.2MCG/KG/HR WITH A RASS OF -2. PT IS TOLERATING THE BIPAP AT THIS TIME AT 16/8 AND 35% WITH O2 SATS 90-94%. L/S ARE A LITTLE COARSE MORE SO ON THE RIGHT THAN THE LEFT. PT'S NEW IS PATENT AND DRAINING TO GRAVITY. PT'S HSUBAND WAS UPDATED ON THE PT'S CONDITION AND PLAN OF CARE. CALL LIGHT IS IN REACH WILL CONTINUE TO MONITOR UNTIL REPORT IS GIVEN TO ONCOMING RN.
--- NOTE | 2024-02-28 20:00 | NUR ---
ASSUMED CARE OF PT AT 1900. PT PRESENTS IN BED. SLEEPING. IS ON PRECEDEX FOR W/D'S AT 1.2 MCG'S/KG/HOUR. PT MAINTAINS ADEQUATE SAS AND CIWA SCORING. SEE ICU FLOWSHEET FOR DETAILS. PT ON BIPAP AT 16/8 WITH FIO2 35 PERCENT. MAINTAINS SATURATIONS > 90 PERCENT WITH THIS. WILL REVIEW CHART AND PLAN OF CARE FOR THIS PT.
--- NOTE | 2024-02-28 21:47 | NUR ---
ORAL CARE DONE FOR PT AT 1999. DID SWITCH PT TO 5 L/M PER NASAL CANNULA FOR CLEANING. PT MAINTAINS SATURATIONS 88-91 PERCENT. PT'S COGNITION AT THIS TIME IS POOR. THIS ATTRIBUTED TO ETOH W/D'S AND PRECEDEX. WILL CONTINUE TO MONITOR.
[2024-02-29] VITALS (46 sets, daily range): BP systolic 80–154; BP diastolic 53–103
[2024-02-29] MEDS ORDERED: LORazepam 2 MG/ML 1ML Injection IV PRN (00:20)
--- NOTE | 2024-02-29 00:53 | NUR ---
CALL MADE TO DR TAMAYO, HOSPITALIST SECONDARY TO PT'S INCREASING AGITATION LEVEL EVEN WITH PRECEDEX AT 1.2 MCG'S/KG/HOUR. ORDER FOR ATIVAN RECEIVED. OF NOTE: PT DOES TAKE ATIVAN AT HOME. CIWA SCORING INCREASING TO 10. PT'S MENTATION HAS IMPROVED AND IS ABLE TO MAINTAIN CONVERSATION EVEN THOUGH SHE IS AGITATED AND ANXIOUS. WILL CONTINUE TO MONITOR.
[2024-02-29 03:24] LABS: Base Excess Venous 11.9 mmol/L; Bicarbonate Venous 34.5 mmol/L (24.0-30.0); PCO2 Venous 44.2 mmHg (38-42); pH Blood Venous 7.51 (7.34-7.37)
[2024-02-29 03:45] LABS: Hematocrit 31.2 % (33.0-51.0); Hemoglobin 8.8 g/dL (11.5-16.0); Mean Corpuscular HGB 20.9 pg (26.0-34.0); Mean Corpuscular HGB Conc 28.2 g/dL (31.5-36.5); Mean Corpuscular Volume 74 fL (80-100); Mean Platelet Volume 9.8 fL (9.1-12.4); Platelet Count 386 K/mm3 (150-400); RDW Coefficient Variation 17.7 % (11.7-14.2); RDW Standard Deviation 46.9 fL (35.1-46.3); Red Blood Cell Count 4.21 M/mm3 (3.80-5.20); White Blood Cell Count 6.38 K/mm3 (4.00-11.30)
[2024-02-29 04:04] LABS: Bun/Creatinine Ratio 10.6 (12.0-20.0); Calcium, Blood 9.2 mg/dL (8.5-10.1); Creatinine, Blood 0.75 mg/dL (0.40-1.00); Potassium, Blood 4.9 mmol/L (3.5-5.5)
[2024-02-29] MEDS ORDERED: Dose Adjust by Pharmacy XX STA (05:09)
--- NOTE | 2024-02-29 06:15 | NUR ---
PT CONTINUES ON PRECEDEX AT 1.4 MCG'S/KG/HOUR. PT HAS BEEN ABLE TO REST SOME. WAKENS EASILY WITH REPOSITIONING. AT TIMES IS ARGUEMENTIVE WITH STAFF. HAVE DONE TEACHING ON IMPORTANCE OF BIPAP IN RELATIN TO HER RESPIRATORY STATUS. PT'S MENTATION HAS IMPROVED SOME. NEW CATHETER HAS HAD GOOD OUTPUT THIS NIGHT. HAVE MEDICATE PT ONCE WITH ATIVAN 2 MG. PT DOES TAKE ATIVAN AT HOME. GEL PAD PLACED UNDER BIPAP MASK TO IMPROVE MASK TOLERANCE. WILL CONTINUE TO MONITOR PT, AND WILL REPORT OFF TO ONCOMING RN.
--- NOTE | 2024-02-29 06:20 | NUR ---
ADDENDUM TO PREVIOUS NOTE: PT HAS BECOME MORE TACHYPNEIC THIS NIGHT. HIGHEST CIWA SCORING WAS 10. RESPIRATORY THERAPY HAS MADE CHANGE TO BIPAP SETTINGS AFTER RUNNING VBG. PRESSURES REDUCED. THIS HAS DONE LITTLE TO CHANGE RESPIRATORY PATTERN.
[2024-02-29] MEDS ORDERED: Metoclopramide HCl 5MG / ML 2ML Vial IV PRN (07:35)
--- NOTE | 2024-02-29 08:00 | NUR ---
PT IS ON BIPAP SETTINGS 08/03 RATE 14 SATS 93%. PRECEDEX @ 1.4, HEPARIN @ 18U PER KG. LEFT GREAT TOE PURPLE IN COLOR, COOL TO THE TOUCH.
[2024-02-29] MEDS ORDERED: Lactobacil 2-S.Thermo-Bifido 1 1 Cap PO SCH (09:00)
[2024-02-29] MEDS ORDERED: LevoFLOXacin 750 MG/D5W 150ML 150 ML IV SCH (09:00)
[2024-02-29] MEDS ORDERED: LORazepam 1 MG Tab PO ONE (10:00)
[2024-02-29] MEDS ORDERED: LORazepam 1 MG Tab PO PRN (10:00)
[2024-02-29] MEDS ORDERED: Acetaminophen 325 MG TABLET PO ONE (11:55)
[2024-02-29] MEDS ORDERED: Acetaminophen 325 MG TABLET PO PRN (11:55)
[2024-02-29] MEDS ORDERED: Rivaroxaban 10 MG Tab PO SCH (12:15)
[2024-02-29] MEDS ORDERED: Diltiazem HCl 5 MG / ML 5ML Vial IV ONE (13:50)
[2024-02-29] MEDS ORDERED: Morphine Sulfate 4 MG/1 ML Injection IV PRN ×2 (14:55→21:50)
--- NOTE | 2024-02-29 16:17 | NUR ---
Pt. is awake in bed and welcomes my visit. Nurse Tiffany is present and participated in introductions and encouraged the Pt. 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 Through tears Pt. shared about the recent loses of two of her sons both of which happened on an Sunday. With therputic listening and a calm pastoral presence Pt. began to display evidence of trust and hope. Pt. requested prayer for an upcoming family gathering. Prayed with Pt. Pt. 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
[2024-02-29] MEDS ORDERED: dilTIAZem HCL 60 MG TAB PO SCH (16:30)
--- NOTE | 2024-02-29 20:00 | NUR ---
ASSUMED CARE OF PT AT 1900. REPORT RECEIVED AT BEDSIDE. PT PRESENTS ALERT AND ORIENTED. PLEASANT AND COOPERATIVE WITH CARE AND ASSESSMENT. DOES VERBALIZE THAT SHE IS ANXIOUS THAT SHE WOULD NEED TO WEAR THE BIPAP AGAIN THIS NIGHT. PT STATES THAT IT GAVE HER A REAL FEELING OF "CLAUSTROPHOBIA". ASSURED PT THAT AT THIS TIME, THERE DOES NOT INDICATE A NEED TO HAVE BIPAP ON THIS NIGHT. ATTEMPT TO FIND PEDAL AND POST-TIBIAL PULSES BY PALPATION AND BY DOPPLER WENT UNSUCESSFUL. NOTED: LEFT LOWER EXTREMITY COLD TO TOUCH. PUPLE COLORATION TO TOES ON LEFT FOOT AND TO DORSAL ASPECT APPEAR INCREASED FROM PREVIOUS DAY. COOLNESS OF LEFT EXTREMITY UP TO KNEE. CALL MADE TO DR Amaro WITH THIS INFORMATION. ORDER RECEIVED FOR ARTERIAL DUPLEX TO BE DONE TONIGHT OF LEFT LOWER EXTREMITY. DR Amaro WANTS TO BE CALLED WITH RESULTS OF TEST. WILL REVIEW CHART AND PLAN OF CARE FOR THIS PT.
--- NOTE | 2024-02-29 22:59 | NUR ---
CALL MADE TO DR Amaro WITH RESULTS OF ARTERIAL DUPLEX. PT TO HAVE ADDITIONAL MANAGEMENT DONE ON OUTPATIENT BASIS. PT DOES CALL AT 2 HOURS FOR ADDITIONAL AT 2 HOURS. STATES PAIN CONTINUES A 03/05.
[2024-03-01] VITALS (19 sets, daily range): BP systolic 103–155; BP diastolic 54–85
--- NOTE | 2024-03-01 02:59 | NUR ---
COLOR AND TEMPERATURE OF LEFT FOOT AND LOWER EXTREMITIY NOTED TO BE IMPROVING. ABLE TO OBTAIN PEDAL AND POSTTIBIAL PULSES PER JESSIELER AT THIS TIME. PT DOES CALL FOR MORPHINE EVERY TWO HOURS. HAVE MEDICATED PT ONCE WITH 2 MG ATIVAN TO ASSIST HER IN BECOMING LESS ANXIOUS AND TO HELP HER REST. THIS MADE VERY LITTLE DIFFERNCE.
[2024-03-01] MEDS ORDERED: OxyCODONE HCL 5 MG TAB PO PRN (05:55)
[2024-03-01 06:12] LABS: Bun/Creatinine Ratio 9.9 (12.0-20.0); Calcium, Blood 8.7 mg/dL (8.5-10.1); Creatinine, Blood 1.11 mg/dL (0.40-1.00); Potassium, Blood 3.7 mmol/L (3.5-5.5)
--- NOTE | 2024-03-01 06:19 | NUR ---
PT REQUESTING PAIN MEDICATIONS ON A MUCH MORE FREQUENT BASIS. STATES HER FOOT AND LEG PAIN IS 7-8/10. MORPHINE NOT HOLDING HER PAIN DOWN. DID CALL DR KRAUSE WHEREAS RECEIVED ORDER FOR PO OXYCODONE. WILL USE MORPHINE FOR BREAKTHROUGH PAIN. PT HAS NOT SLEPT MUCH THIS NIGHT. HAS BEEN SOMEWHAT ANXIOUS AND WAS MEDICATED WITH 2 MG LORAZEPAM WITHOUT RELIEF. PT HAS BEEN ABLE TO MOVE ABOUT IN BED SOME WITH ENCOURAGEMENT. HAVE ASSISTED WHERE NEEDED. WILL CONTINUE TO MONITOR PT, AND WILL REPORT OFF TO ONCOMING RN.
--- NOTE | 2024-03-01 08:53 | NUR ---
BSR, GOOD COLOR AND TEMP TO THE LEFT GREAT TOE, DOPPLAR PULSES HEARD. PT REMARKS THAT ORAL PAIN MED IS BEGINNING TO HELP. EATING BREAKFAST, WANTS TO BE MORE ACTIVE TODAY. ALSO WANTS A BRIEF NAP. DENIES ANY OTHER COMPLAINTS.
--- NOTE | 2024-03-01 17:20 | NUR ---
IBRAHIMA HAS NAPPED INTERMITTENTLY T/O THE SHIFT. HER AND SON CAME TO VISIT AND THIS LIFTED HER SPIRITS. SHE HAS TAKEN OXYCODONE WITH TYLENOL AROUND NOONTIME AND HAD 2 ADDITIONAL DOSES OF MS 2MG. PT EDUCATED ABOUT NOT BEING ABLE TO TAKE MORPHINE AT HOME AND THAT SHE NEEDS TO FIND ALTERNATE WAYS TO HELP DEAL WITH HER PAIN. SHE IS ENCOURAGED THAT SHE SHOULD BE GOING HOME TOMORROW HER FAMILY IS COMING FROM [place]. WILL DO HOME OXYGEN EVAL TOMORROW. ENCOURAGE MOBILITY AND PATIENT TO INCREASE HER ACTIVITY.
--- NOTE | 2024-03-01 21:48 | NUR ---
PT UP TO TOILET TO ATTEMPT TO VOID AND HAVE BM. PENDING RESULTS. PT USES WALKER WITH GOOD RESULTS. WILL CONTINUE TO MONITOR.
[2024-03-02 00:21] VITALS: BP 119/60
--- NOTE | 2024-03-02 01:41 | NUR ---
PT TO BE TRANSFERRED TO ROOM PCU 2 ONCE REPORT IS GIVEN. PT AWARE AND RELUCTANTLY AGREEABLE TO TRANSFER.
[2024-03-02 02:52] VITALS: BP 133/78
--- NOTE | 2024-03-02 04:44 | NUR ---
PT TRANSFERRED FROM ICU. PT IS ALERT AND ORIENTED X 4, COOPERATIVE WITH CARE AND ABLE TO MAKE NEEDS KNOWN. SHE IS ON 2L NC AND MAINTAINING 02 SATURATION ABOVE 92%, SHE DENIES SOB. HR SR 80'S, SHE DENIES CHEST PAIN/PRESSURE, AND VITALS STABLE. PER PT AND ICU NURSE WHO GAVE REPORT, PT HAS BEEN HAVING DIFFICULTY URINATING SINCE CATHETER WAS REMOVED, HOWEVER, BLADDER SCAN WAS PERFORMED AROUND 0000 AND 43ML WAS IN BLADDER. ICU NURSE SAID PT HASN'T BEEN DRINKING A LOT OF FLUIDS. ASKED PT WHEN SHE ARRIVED TO UNIT IF SHE FELT SHE NEEDED TO VOID AND WANTED TO USE RESTROOM AND SHE DECLINED, SHE SAID SHE DID NOT FEEL LIKE SHE NEEDED TO URINATE, AND HADN'T DRANK MUCH OF ANYTHING SINCE BLADDER SCAN. PT HAS BEEN RESTING SINCE. PEDAL PULSES PRESENT BILATERALLY, TOES TO L FOOT DISCOLORED YET WARM, RECENT REVASCULARIZATION PROCEDUR PERFORMED. PT C/O PAIN TO L FOOT AND MEDICATED PER EMAR. PT WALKED FROM ICU BED PARKED AT THE DOORWAY OF HER PCU ROOM AND WALKED TO PCU BED WITH SBA AND WALKER, SHE TOLERATED WELL. ACCORDING TO ICU NURSE, PT HAS BEEN USING HER MOTHER IN LAWS 02 AT HOME, ORDER FOR HOME 02 EVAL IN CHART. ALSO ACCORDING TO REPORT FROM ICU NURSE, PT PLANS TO GO HOME IN HER HUSBANDS TRUCK THAT IS LIFTED AND HARD FOR HER TO GET INTO, PT MAY NEED TRANSPORTATION ASSISTANCE. WELL SAFETY CONCERNS REGARDING HER ENTRY WAY & STEPS, & MAY NEED HOME HEALTH. CASE MANAGEMENT CONSULT PLACED BY THIS RN. PT CURRENTLY RESTIN IN BED WITH EVEN AND UNLABORED BREATHING. CALL LIGHT WITHIN REACH.
--- NOTE | 2024-03-02 06:43 | NUR ---
PT URINATED 200ML AND MISSED THE COLLECTION HAT FOR PART OF IT, SO SHE URINATED EVEN MORE THAN 200ML. PT SAID SHE HAD NO DIFFICULTY URINATING.
[2024-03-02 06:58] LABS: Hematocrit 30.5 % (33.0-51.0); Hemoglobin 8.3 g/dL (11.5-16.0); Mean Corpuscular HGB 20.9 pg (26.0-34.0); Mean Corpuscular HGB Conc 27.2 g/dL (31.5-36.5); Mean Corpuscular Volume 77 fL (80-100); Mean Platelet Volume 9.5 fL (9.1-12.4); Platelet Count 402 K/mm3 (150-400); RDW Coefficient Variation 18.9 % (11.7-14.2); RDW Standard Deviation 50.8 fL (35.1-46.3); Red Blood Cell Count 3.97 M/mm3 (3.80-5.20); White Blood Cell Count 6.89 K/mm3 (4.00-11.30)
[2024-03-02 07:17] LABS: Potassium, Blood 3.9 mmol/L (3.5-5.5)
[2024-03-02 07:43] VITALS: BP 140/70; BP 140/71
[2024-03-02 11:13] VITALS: BP 112/67
[2024-03-02] MEDS ORDERED: MICONAZOLE NITR85 GM TOP (13:18)
[2024-03-02] MEDS ORDERED: NICO21TP TOP (13:19)
[2024-03-02] MEDS ORDERED: THEREMS MULTI400 MCG PO (13:19)
[2024-03-02] MEDS ORDERED: OXAYDO5 M1 PO (13:20)
--- NOTE | 2024-03-02 15:01 | NUR ---
DISCHARGE SUMMARY PT A&Ox4, CALLS AND COMMMUNICATES NEEDS APPROPRIATELY. BP STALBLE, SINUS 70-90's, DENIES CP/PRESSURE. SpO2> 92% RA WHILE AT REST, 4L VIA NC WITH ACTIVITY. PT REPORTS DYSPNEA WITH ACTIVITY. CONTINENT OF URINE AND BOWEL, SBA TO BATHROOM. DISCHARGE INSTRUCTIONS PROVIDED. ALL PT BELONGINGS GATHERED AND SENT WITH EMS TRANSPORT. PT SBA TO TRANSFER FROM HOSPITAL BED TO [facility]. PT TAKEN OUT AT APPROXIMATELY 1355 BY EMS TRANSPORT VIA [facility].
== END 2024-03-02 13:30 | disposition home or self-care (01) | DRG 252 ==
LOC: ER 05:14 → ERHOLD 12:31 → PCU 12:31 → ICUE 02-28 10:31 → PCU 03-02 02:35
PROVIDERS: Emergency Medicine; Family Medicine; Student in an Organized Health Care Education/Training Program; ADMIT Internal Medicine
PROC: 047D3DZ Dilation of Left Common Iliac Artery with Intraluminal Device, Percutaneous Approach (ICD-10-PCS; principal; 2024-02-26)
PROC: 047J3DZ Dilation of Left External Iliac Artery with Intraluminal Device, Percutaneous Approach (ICD-10-PCS; 2024-02-26)
PROC: 047Q3ZZ Dilation of Left Anterior Tibial Artery, Percutaneous Approach (ICD-10-PCS; 2024-02-26)
PROC: B44LZZ3 Ultrasonography of Femoral Artery, Intravascular (ICD-10-PCS; 2024-02-26)
PROC: 5A09357 Assistance with Respiratory Ventilation, Less than 24 Consecutive Hours, Continuous Positive Airway Pressure (ICD-10-PCS; 2024-02-26)
PROC: 4A033R1 Measurement of Arterial Saturation, Peripheral, Percutaneous Approach (ICD-10-PCS; 2024-02-28)
DX: I70.222 Atherosclerosis of native arteries of extremities with rest pain, left leg (principal); J96.21 Acute and chronic respiratory failure with hypoxia; J96.22 Acute and chronic respiratory failure with hypercapnia; E66.2 Morbid (severe) obesity with alveolar hypoventilation; E87.1 Hypo-osmolality and hyponatremia; Z68.43 Body mass index [BMI] 50.0-59.9, adult; F10.239 Alcohol dependence with withdrawal, unspecified; J44.1 Chronic obstructive pulmonary disease with (acute) exacerbation; I48.0 Paroxysmal atrial fibrillation; D50.9 Iron deficiency anemia, unspecified; Z99.81 Dependence on supplemental oxygen; Z88.2 Allergy status to sulfonamides; Z88.0 Allergy status to penicillin; Z88.5 Allergy status to narcotic agent; Z88.1 Allergy status to other antibiotic agents; I77.1 Stricture of artery
CPT/HCPCS: 36415; 36600; 37221; 37223; 37228; 37232; 71045; 75625; 75635; 75716; 75774; 76937; 80048; 80053; 82140; 82565; 82728; 82803; 82947; 83540; 83550; 83880; 84132; 84484; 85025; 85027; 85610; 85730; 93005; 93010; 93306; 93926; 94640; 94644; 94660; 94664; 94760; 94761; 94762; 96374; 96375; 97110-CQ; 97116; 97162; 99152; 99153; 99285-25; A9270; C1725; C1760; C1769; C1876; C1887; C1894; J0612; J1170; J1644; J1750; J1815; J1940; J1956; J2060; J2250; J2270; J2405; J2560; J3010; J7030; J7050; Q9967

== ENCOUNTER 2024-03-07 15:42 | Inpatient (IN) | payer OTHER ==
[~2024-03-07] VITALS: Ht 167.6 cm; Wt 146.5 kg
[~2024-03-07 15:42] MED LIST changes: +MICONAZOLE NITR85 GM TOP; +NICO21TP TOP; +OXAYDO5 M1 PO; +THEREMS MULTI400 MCG PO; +TORSE20 PO; +XARELTO20 MG PO
[2024-03-07 17:11] LABS: Hemoglobin 8.6 g/dL (11.5-16.0); Mean Corpuscular HGB 22.4 pg (26.0-34.0); Mean Corpuscular HGB Conc 28.7 g/dL (31.5-36.5); Mean Corpuscular Volume 78 fL (80-100); Mean Platelet Volume 9.7 fL (9.1-12.4); Platelet Count 286 K/mm3 (150-400); RDW Coefficient Variation 22.5 % (11.7-14.2); RDW Standard Deviation 52.6 fL (35.1-46.3); Red Blood Cell Count 3.84 M/mm3 (3.80-5.20); White Blood Cell Count 7.93 K/mm3 (4.00-11.30)
[2024-03-07 17:24] LABS: International Normalized Ratio 1.11; Prothrombin Time Results 11.8 Sec (9.7-11.5)
[2024-03-07 17:29] LABS: BASOPHILS ABSOLUTE MAN 0.07 K/mm3 (0.00-0.23); BASOPHILS PERCENT MAN 1 % (0-2); EOSINOPHILS ABSOLUTE MAN 0.15 K/mm3 (0.00-0.68); EOSINOPHILS PERCENT MAN 2 % (0-6); LYMPHOCYTES ABSOLUTE MAN 1.03 K/mm3 (0.84-5.20); LYMPHOCYTES PERCENT MAN 13 % (21-46); MONOCYTES ABSOLUTE MAN 0.23 K/mm3 (0.16-1.47); MONOCYTES PERCENT MAN 3 % (4-13); NEUTROPHILS ABSOLUTE MAN 6.42 K/mm3 (1.96-9.15); SEG NEUTROPHILS PERCENT MAN 81 % (41-73); TOTAL CELLS COUNTED 100
[2024-03-07 17:30] LABS: Albumin, Blood 3.1 g/dL (3.4-5.0); Albumin/Globulin Ratio 0.7 (0.8-1.8); Bilirubin, Total 0.3 mg/dL (0.1-1.0); Bun/Creatinine Ratio 11.9 (12.0-20.0); Calcium, Blood 8.9 mg/dL (8.5-10.1); Creatinine, Blood 1.01 mg/dL (0.40-1.00); Globulin, Blood 4.3 g/dL (2.2-4.0); Potassium, Blood 3.9 mmol/L (3.5-5.5); Total Protein, Blood 7.4 g/dL (6.4-8.2)
[2024-03-07] MEDS ORDERED: HYDROmorphone HCl/Pf 1MG SYR IV ONE (18:25)
[2024-03-07] MEDS ORDERED: Acetaminophen 325 MG TABLET PO PRN (23:10)
[2024-03-07] MEDS ORDERED: Lopressor 25 mg25 MG PO (23:15)
[2024-03-07] MEDS ORDERED: LORazepam 1 MG Tab PO SCH (23:30)
[2024-03-07] MEDS ORDERED: Metoprolol Tartrate 50 MG Tab PO SCH (23:30)
[2024-03-07] MEDS ORDERED: dilTIAZem HCL 60 MG TAB PO SCH (23:33)
[2024-03-07] MEDS ORDERED: Heparin Sodium 5000 Units/ML 1ML MDV IV ONE (23:35)
[2024-03-07] MEDS ORDERED: Heparin Sodium,Porcine/0.5 NS 500 ML IV SCH (23:35)
[2024-03-08] MEDS ORDERED: OxyCODONE HCL 5 MG TAB PO PRN ×2 (00:10→17:50)
[2024-03-08] MEDS ORDERED: Naloxone HCl 0.4MG / ML 1ML Vial IV PRN (00:10)
[2024-03-08] MEDS ORDERED: FentaNYL Citrate 50 MCG/ML 2 ML Injection IV PRN (00:10)
--- NOTE | 2024-03-08 01:00 | NUR ---
ADMISSION REPORT RECEIVED FROM ER NURSE. PATIENT ARRIVES TO PCU 17, ABLE TO STAND PIVOT TO PCU BED INDEPENDENTLY. PATIENT ALERT, ORIENTED x4, ANSWERING QUESTIONS APPROPRIATELY. ON TELE READING SR 68, BP STABLE. PATIENT ON BASELINE 4L NC WITH SPO2 MID 90s. LEFT GREAT TOE AND SECOND TOE BLUE/PURPLE IN COLOR, MARKED WHERE COLOR ENDS ON FOOT. DOPPLER PEDAL AND TIBAL PULSES PRESENT, PATIENT EDEMATOUS IN LOWER EXTREMITIES. HEPARIN GTT INITIATED BY ER. PILLOWS PROVIDED PER REQUEST. PATIENT ORIENTED TO ROOM AND CALL LIGHT SYSTEM. NO OTHER NEEDS AT THIS TIME.
[2024-03-08] MEDS ORDERED: Nicotine 21 MG PATCH TOP SCH (03:00)
[2024-03-08 03:44] VITALS: BP 127/71
[2024-03-08 03:45] LABS: Hematocrit 32.2 % (33.0-51.0); Mean Corpuscular HGB 22.3 pg (26.0-34.0); Mean Corpuscular Volume 80 fL (80-100); Mean Platelet Volume 9.3 fL (9.1-12.4); Platelet Count 266 K/mm3 (150-400); RDW Coefficient Variation 22.9 % (11.7-14.2); RDW Standard Deviation 55.8 fL (35.1-46.3); Red Blood Cell Count 4.04 M/mm3 (3.80-5.20); White Blood Cell Count 8.41 K/mm3 (4.00-11.30)
[2024-03-08 04:18] LABS: Albumin, Blood 3.1 g/dL (3.4-5.0); Albumin/Globulin Ratio 0.7 (0.8-1.8); BAND PERCENT MAN 2 % (0-8); BASOPHILS PERCENT MAN 0 % (0-2); Bilirubin, Total 0.2 mg/dL (0.1-1.0); Calcium, Blood 8.6 mg/dL (8.5-10.1); EOSINOPHILS ABSOLUTE MAN 0.58 K/mm3 (0.00-0.68); EOSINOPHILS PERCENT MAN 7 % (0-6); Globulin, Blood 4.2 g/dL (2.2-4.0); LYMPHOCYTES ABSOLUTE MAN 1.26 K/mm3 (0.84-5.20); LYMPHOCYTES PERCENT MAN 15 % (21-46); MONOCYTES ABSOLUTE MAN 0.33 K/mm3 (0.16-1.47); MONOCYTES PERCENT MAN 4 % (4-13); NEUTROPHILS ABSOLUTE MAN 6.22 K/mm3 (1.96-9.15); Potassium, Blood 3.7 mmol/L (3.5-5.5); SEG NEUTROPHILS PERCENT MAN 72 % (41-73); TOTAL CELLS COUNTED 100; Total Protein, Blood 7.3 g/dL (6.4-8.2)
[2024-03-08 07:39] VITALS: BP 141/76
[2024-03-08] MEDS ORDERED: Dose Adjust by Pharmacy XX STA ×3 (08:38→23:30)
[2024-03-08] MEDS ORDERED: Heparin Sodium 5000 Units/ML 1ML MDV IV ONE ×2 (08:40→15:55)
[2024-03-08] MEDS ORDERED: Gabapentin 300 MG Cap PO SCH (09:00)
[2024-03-08] MEDS ORDERED: OxyCODONE HCL 5 MG TAB PO ONE (09:50)
[2024-03-08] MEDS ORDERED: HYDROmorphone HCl/Pf 1MG SYR IV PRN (10:40)
[2024-03-08] MEDS ORDERED: Furosemide 10 MG/ML 4ML Vial IV SCH (11:20)
[2024-03-08 11:45] VITALS: BP 114/61
[2024-03-08] MEDS ORDERED: NS 1,000 ML IV ONE ×2 (14:54→14:55)
[2024-03-08] MEDS ORDERED: FentaNYL Citrate 50 MCG/ML 2 ML Injection ONE (14:54)
[2024-03-08] MEDS ORDERED: Heparin Sodium 1000 Units/ML 10ML MDV ONE ×2 (14:54→14:55)
[2024-03-08] MEDS ORDERED: Midazolam HCl 1MG / ML 2ML Vial ONE (14:54)
[2024-03-08] MEDS ORDERED: NS 500 ML IV ONE (14:55)
[2024-03-08] MEDS ORDERED: Nitroglycerin 2 MG/20 ML BTL ONE (14:55)
[2024-03-08] MEDS ORDERED: NS 100 ML IV ONE (15:00)
[2024-03-08 15:04] VITALS: BP 138/87
[2024-03-08 16:56] VITALS: BP 146/81
--- NOTE | 2024-03-08 18:08 | NUR ---
PT SUMMARY; PT JUST CAME BACK FROM REVASC PROCEDURE BY DR CRUZITO CAMPA DONE, PT HAS RIGHT GROIN SITE WITH ANGIO SEAL AND TEGADERM DRESSING CDI, NO HEMATOMA OR BLEEDING AROUND THE SITE. PT CURRENTLY LAYING FLAT UNTIL 1900. DIET RESUMED. PT HAS BEEN C/O REALLY BAD SHOOTING PAINS ON LLE BEFORE THE PROCEDURE OXYCODONE PO INCREASED TO UP TO 10MG AND FENTANYL IV SWITCHED TO DILAUDID. THIS RN AND TITLE CAMERA OPERATOR EXPLAINED TO PT RISK OF RESPIRATORY DEPRESSION LIKE WHAT HAPPENED LAST TIME ON HER LAST ADMISSION, PT HAS BEEN IN DENIAL AND ANXIOUS AT THE SAME TIME, ARGUMENTATIVE AND MANIPULATIVE IN EVERY DISCUSSION, RESPIRATORY THERAPIST ALSO HAD DISCUSSION WITH THE PT. PT HAS BEEN ON 4L OF O2 VIA NASAL CANNULA AND WILL DESAT TO LOW 80'S EVERY TIME PT FALLS ASLEEP, MD MADE AWARE PT HAS UNDERLYING YANNA CPAP/BIPAP PROTOCOL WAS ORDERED, WHICH PT WAS INFORMED BEFORE PLACING THE MACHINE IN THE ROOM AND PT AGREED TO HAVE IT ON STAND BY IN CASE PT NEEDS IT. RESPIRATORY THERAPIST OFFERED THE CPAP AND HAVE PT TRIED IT ON A COUPLE TIMES PT COMPLAINED THAT IT DIDNT FIT RIGHT UNTIL PT DECIDES TO NOT HAVE IT ON. PT STATED " I WOULD RATHER HAVE YOU WAKE ME UP WHEN MY OXYGEN IS LOW, THAN PUTTING THAT MASK ON MY FACE". RT ASKED TO HAVE PT SIGN REFUSAL FORM AND PT REFUSED TO SIGN EVEN AFTER THIS RN, RT AND TITLE CAMERA OPERATOR EXPLAINED THE NEED FOR THE MACHINE PT STILL IN DENIAL. THIS RN AND RT ADRIANA THE PT REFUSAL FORM. CPAP MACHINE AT THE BEDSIDE OF THE MEAN TIME. PT NOW FALLING ASLEEP AND STILL DESATTING STILL REFUSED TO WEAR THE MASK. NO OTHER ISSUES REPORTED FOR THE SHIFT. VITALS HRR SR 60-90'S, SBP 140'S, AFEBRILE. HEP GTT RESUMED INFUSING AT 24U/KG/HR. WILL REPORT TO ONCOMING SHIFT
[2024-03-08 20:16] VITALS: BP 135/75
--- NOTE | 2024-03-08 20:18 | NUR ---
ASSUMED CARE OF PT AT 1900 PT RESTING ON BED- TALKING ON PHONE AND WATCHING TV. DENIES PAIN CURRENTLY. HOB CURRENTLY ELEVATED TO APPROX 30 DEGREES. RT AT BEDSIDE- USE OF CPAP DISCUSSED. PT STS SHE DOES NOT WANT TO/WILL NOT WEAR AT NIGHT ORDERED. REFUSAL PAPERWORK SIGNED, THIS RN PRESENT. PT CURRENTLY WEARING 4L O2 VIA NC, SATS ARE LOW 90S. WHEEZES THROUGHOUT. PT ON CONTINUOUS DIESEL ENGINE PIPE FITTER- RATE OF 92 OBSERVED. DENIES CP OR SOB AT THIS TIME. PT HAS CHG TEGEDERM TO RIGHT FEMORAL SITE- CLEAN/DRY/INTACT. NO BLEEDING OR OOZING OBSERVED. HEPARIN INFUSING ORDERED AT 24 UNITS/ KG/ HR. CALL LIGHT W/ IN REACH.
--- NOTE | 2024-03-08 23:45 | NUR ---
Heparin titrated to 26 units/kg/hr per pharmacist.
[2024-03-09 00:07] VITALS: BP 105/63
[2024-03-09 04:22] VITALS: BP 106/60
[2024-03-09 04:29] LABS: Hematocrit 29.6 % (33.0-51.0); Hemoglobin 8.4 g/dL (11.5-16.0); Mean Corpuscular HGB 22.8 pg (26.0-34.0); Mean Corpuscular HGB Conc 28.4 g/dL (31.5-36.5); Mean Corpuscular Volume 80 fL (80-100); Mean Platelet Volume 9.1 fL (9.1-12.4); Platelet Count 125 K/mm3 (150-400); RDW Coefficient Variation 23.2 % (11.7-14.2); RDW Standard Deviation 56.5 fL (35.1-46.3); Red Blood Cell Count 3.69 M/mm3 (3.80-5.20); White Blood Cell Count 8.05 K/mm3 (4.00-11.30)
[2024-03-09 04:55] LABS: Bun/Creatinine Ratio 11.3 (12.0-20.0); Calcium, Blood 8.6 mg/dL (8.5-10.1); Creatinine, Blood 1.15 mg/dL (0.40-1.00); Potassium, Blood 3.9 mmol/L (3.5-5.5)
--- NOTE | 2024-03-09 05:44 | NUR ---
End of shift summary No acute events overnight. Pt right groin site remains clean/dry/intact and tegaderm shows no bleeding. Pt reports pain to left lower leg requiring multiple doses of prn medication. Pt requests additional doses repeatedly- educated on time interval of current orders. Pulses to lle faint, but palpable. Pt on 4l o2 via nc and sats >93%. HR via continuous monitor rate of 80s, bp stable. Pt using call light appropriately, and ambulated to rr w/out incident- stand by assist provided. Plan of care ongoing.
[2024-03-09 07:11] VITALS: BP 161/86
[2024-03-09] MEDS ORDERED: Rivaroxaban 10 MG Tab PO SCH (08:00)
[2024-03-09] MEDS ORDERED: Ferrous Sulfate 325 MG Tab PO SCH (08:30)
[2024-03-09] MEDS ORDERED: DOC250 PO (08:38)
[2024-03-09] MEDS ORDERED: NARCAN4 M1 (08:39)
[2024-03-09] MEDS ORDERED: FERSU300 PO (08:39)
[2024-03-09] MEDS ORDERED: Docusate Sodium 100 MG Cap PO SCH (09:00)
--- NOTE | 2024-03-09 09:04 | NUR ---
PT WILL BE DISCHARGING THIS MORNING. [facility] AND WE ARRANGED A RIDE WITH [facility]. THE PT IS A&oX4, BUT HAS BEEN CRYING ALL MORNING ABOUT PAIN MANAGMENT. I MEDICATED HER WITH TYLENOL PER EMAR. THE PT IS NOW JUST SITTING IN THE ROOM. WHEN STAFF IS NOT PRESENT IN THE ROOM SHE HAS BEEN QUITE AND NOT CRYING. SHE IS ON 2L NC AT THSI TIME; DENIES SOB. WHEN ON TELE SHE WAS SR, BP STABLE. HEP GTT WAS STOPPED AND THE PT WAS TRANSITIONED TO [facility] PER EMAR. I CALLED [facility] FOR THE PT BUT WAS UNABLE TO REACH THE TEAM. I TOLD THE PT TO CALL THE HOSPITAL TOMORROW TO SPEAK WITH THE TEAM. SEE NOTES FOR ANY UPDATES.
[2024-03-09 10:00] VITALS: BP 115/70
--- NOTE | 2024-03-09 10:21 | NUR ---
I CALLED DR. BLACK ABOUT THE PT'S MOUTH SORE SLIGHTLY BLEEDING. HE RECCOMENDED OXYMETAZOLINE IF IT CAN BE ORALLY, BUT PHARMACY SAID IT CAN NOT. DR. BLACK WANTS THE PT TO KEEP PRESSURE ON THE SORE AND HOLD XERELTO IF THE BLEEDING CONTINUES. RESUME IF IT STOPS. PT WILL BE D/C'ING AROUND 1100.
--- NOTE | 2024-03-09 11:13 | NUR ---
pt d/c'd at 1116
== END 2024-03-09 11:14 | disposition home or self-care (01) | DRG 253 ==
LOC: ER 15:42 → PCU 23:08
PROVIDERS: Family Medicine Adult Medicine; Internal Medicine; Student in an Organized Health Care Education/Training Program; ADMIT Student in an Organized Health Care Education/Training Program
PROC: B41G1ZZ Fluoroscopy of Left Lower Extremity Arteries using Low Osmolar Contrast (ICD-10-PCS; principal; 2024-03-08)
PROC: 047L3ZZ Dilation of Left Femoral Artery, Percutaneous Approach (ICD-10-PCS; principal; 2024-03-08)
DX: I75.022 Atheroembolism of left lower extremity (principal); F10.239 Alcohol dependence with withdrawal, unspecified; I50.32 Chronic diastolic (congestive) heart failure; Z68.43 Body mass index [BMI] 50.0-59.9, adult; I70.222 Atherosclerosis of native arteries of extremities with rest pain, left leg; D50.9 Iron deficiency anemia, unspecified; E66.01 Morbid (severe) obesity due to excess calories; I48.0 Paroxysmal atrial fibrillation; F17.210 Nicotine dependence, cigarettes, uncomplicated; J44.9 Chronic obstructive pulmonary disease, unspecified; Z79.01 Long term (current) use of anticoagulants; Z71.6 Tobacco abuse counseling; Z95.820 Peripheral vascular angioplasty status with implants and grafts; Z98.84 Bariatric surgery status
CPT/HCPCS: 36415; 76937; 80048; 80053; 85025; 85027; 85520; 85610; 85730; 93926; 94660; 94664; 94762; 96374; 99152; 99153; 99285-25; A9270; C1725; C1760; C1769; C1887; C1894; J1170; J1644; J1940; J2250; J3010; J7030; J7050; Q9967

== ENCOUNTER 2024-04-13 01:33 | Emergency (ER) | payer OTHER ==
[~2024-04-13] VITALS: Ht 170.2 cm; Wt 140.6 kg
[~2024-04-13 01:33] MED LIST changes: +DOC250 PO; +FERSU300 PO; +HYDHCL25 PO; +METF500 PO; +METO25 PO; +NARCAN4 M1; +OXYC10TA19 PO
[2024-04-13 02:06] LABS: Albumin/Globulin Ratio 0.6 (0.8-1.8); BASOPHILS ABSOLUTE AUTO 0.04 K/mm3 (0.00-0.23); BASOPHILS PERCENT AUTO 1 % (0-2); Bilirubin, Total 0.3 mg/dL (0.1-1.0); Bun/Creatinine Ratio 21.4 (12.0-20.0); Calcium, Blood 9.2 mg/dL (8.5-10.1); Creatinine, Blood 0.89 mg/dL (0.40-1.00); EOSINOPHILS ABSOLUTE AUTO 0.39 K/mm3 (0.00-0.68); EOSINOPHILS PERCENT AUTO 5 % (0-6); Globulin, Blood 4.7 g/dL (2.2-4.0); Hematocrit 31.1 % (33.0-51.0); Hemoglobin 9.3 g/dL (11.5-16.0); IMMATURE GRAN ABSOLUTE AUTO 0.05 K/mm3 (0.00-0.10); IMMATURE GRAN PERCENT AUTO 1 % (0-1); LYMPHOCYTES ABSOLUTE AUTO 1.47 K/mm3 (0.84-5.20); LYMPHOCYTES PERCENT AUTO 17 % (21-46); MONOCYTES ABSOLUTE AUTO 0.48 K/mm3 (0.16-1.47); MONOCYTES PERCENT AUTO 6 % (4-13); Magnesium, Blood 2.5 mg/dL (1.6-2.4); Mean Corpuscular HGB Conc 29.9 g/dL (31.5-36.5); Mean Corpuscular Volume 84 fL (80-100); Mean Platelet Volume 11.7 fL (9.1-12.4); NEUTROPHILS ABSOLUTE AUTO 6.08 K/mm3 (1.96-9.15); NEUTROPHILS PERCENT AUTO 71 % (41-73); Platelet Count 423 K/mm3 (150-400); Potassium, Blood 4.4 mmol/L (3.5-5.5); RDW Coefficient Variation 22.5 % (11.7-14.2); RDW Standard Deviation 68.4 fL (35.1-46.3); Red Blood Cell Count 3.72 M/mm3 (3.80-5.20); Total Protein, Blood 7.7 g/dL (6.4-8.2); White Blood Cell Count 8.51 K/mm3 (4.00-11.30)
[2024-04-13] MEDS ORDERED: OxyCODONE HCL 5 MG TAB PO ONE (02:50)
[2024-04-13] MEDS ORDERED: Methocarbamol 500 MG Tab PO ONE (03:00)
[2024-04-13] MEDS ORDERED: Mag Sulfate 1 GM/D5% 100ML 100 ML IV ONE (04:35)
[2024-04-13] MEDS ORDERED: CALCIUM GLUC IN NACL, ISO-OSM 50 ML IV ONE (04:35)
[2024-04-13 06:05] VITALS: BP 145/82
== END 2024-04-13 06:32 | disposition home or self-care (01) ==
LOC: ER 01:33
PROVIDERS: Student in an Organized Health Care Education/Training Program
DX: I48.0 Paroxysmal atrial fibrillation (principal); R55 Syncope and collapse; M62.838 Other muscle spasm; J45.909 Unspecified asthma, uncomplicated; I10 Essential (primary) hypertension; F17.210 Nicotine dependence, cigarettes, uncomplicated; Z79.84 Long term (current) use of oral hypoglycemic drugs; Z79.899 Other long term (current) drug therapy; Z88.0 Allergy status to penicillin; Z88.2 Allergy status to sulfonamides; Z88.1 Allergy status to other antibiotic agents; Z88.5 Allergy status to narcotic agent; Z88.8 Allergy status to other drugs, medicaments and biological substances
CPT/HCPCS: 71046; 80053; 83735; 83880; 84484; 85025; 93005; 93010; 96365; 96375; 99285-25; A9270; J0612; J3475

== ENCOUNTER 2024-11-01 14:41 | Emergency (ER) | payer OTHER ==
[~2024-11-01] VITALS: Ht 170.2 cm; Wt 140.6 kg
[~2024-11-01 14:41] MED LIST changes: +Ativan1 MG PO; +Crestor40 MG PO
[2024-11-01 15:38] LABS: BASOPHILS ABSOLUTE AUTO 0.03 K/mm3 (0.00-0.23); BASOPHILS PERCENT AUTO 0 % (0-2); EOSINOPHILS PERCENT AUTO 5 % (0-6); Hematocrit 35.2 % (33.0-51.0); Hemoglobin 11.1 g/dL (11.5-16.0); IMMATURE GRAN ABSOLUTE AUTO 0.01 K/mm3 (0.00-0.10); IMMATURE GRAN PERCENT AUTO 0 % (0-1); LYMPHOCYTES ABSOLUTE AUTO 1.47 K/mm3 (0.84-5.20); LYMPHOCYTES PERCENT AUTO 19 % (21-46); MONOCYTES ABSOLUTE AUTO 0.59 K/mm3 (0.16-1.47); MONOCYTES PERCENT AUTO 8 % (4-13); Mean Corpuscular HGB 26.1 pg (26.0-34.0); Mean Corpuscular HGB Conc 31.5 g/dL (31.5-36.5); Mean Corpuscular Volume 83 fL (80-100); Mean Platelet Volume 10.2 fL (9.1-12.4); NEUTROPHILS ABSOLUTE AUTO 5.41 K/mm3 (1.96-9.15); NEUTROPHILS PERCENT AUTO 68 % (41-73); Platelet Count 363 K/mm3 (150-400); RDW Coefficient Variation 15.2 % (11.7-14.2); RDW Standard Deviation 46.2 fL (35.1-46.3); Red Blood Cell Count 4.26 M/mm3 (3.80-5.20); White Blood Cell Count 7.91 K/mm3 (4.00-11.30)
[2024-11-01 15:52] LABS: International Normalized Ratio 1.04; Prothrombin Time Results 11.1 Sec (9.7-11.5)
[2024-11-01 16:04] LABS: Bun/Creatinine Ratio 30.4 (12.0-20.0); Calcium, Blood 9.3 mg/dL (8.5-10.1); Creatinine, Blood 0.72 mg/dL (0.40-1.00); Potassium, Blood 4.3 mmol/L (3.5-5.5)
[2024-11-01 17:19] VITALS: BP 132/74
== END 2024-11-01 17:19 | disposition home or self-care (01) ==
LOC: ER 14:41
PROVIDERS: Student in an Organized Health Care Education/Training Program
DX: N92.4 Excessive bleeding in the premenopausal period (principal); F17.210 Nicotine dependence, cigarettes, uncomplicated
CPT/HCPCS: 76830; 76856; 80048; 85025; 85610; 85730; 86850; 86900; 86901; 93005; 93010; 99284-25

== ENCOUNTER 2024-11-14 07:47 | Day surgery (SDC) | payer OTHER ==
[~2024-11-14] VITALS: Ht 167.6 cm; Wt 136.0 kg
[~2024-11-14 07:47] MED LIST changes: +Lactated Ringer's 1,000 ML IV SCH
[2024-11-14 08:29] VITALS: BP 156/78
[2024-11-14] MEDS ORDERED: propofoL 60 ML IV ONE (08:45)
--- NOTE | 2024-11-14 08:51 | NUR ---
PT TO SDS VIA WC. PT ABLE TO STAND FOR ACCURATE HEIGHT/WEIGHT. UNABLE TO WALK LONG DISTANCES. History, Chart, Medications and Allergies reviewed before start of procedure. Patient confirms NPO status and agrees with scheduled surgery. Pre-Op teaching done. Pt verbalizes understanding. Patient States Post-Procedure ride home has been arranged.
--- NOTE | 2024-11-14 09:15 | NUR ---
11/14/24 0915 Yaneth Batres History, Chart, Medications and Allergies reviewed before start of procedure. DR CAPELLAN PROVIDING ANESTHESIA SEE RECORDS
[2024-11-14] MEDS ORDERED: propofoL 20 ML IV ONE (09:18)
[2024-11-14 09:30] VITALS: BP 103/54
[2024-11-14 09:45] VITALS: BP 109/62
[2024-11-14 10:04] VITALS: BP 111/73
== END 2024-11-14 23:00 | disposition home or self-care (01) ==
LOC: ORSCMMR 07:47 → ORD 09:00 → ORSCMMR 23:00
PROVIDERS: Internal Medicine Gastroenterology
PROC: 0DJ08ZZ Inspection of Upper Intestinal Tract, Via Natural or Artificial Opening Endoscopic (ICD-10-PCS; principal; 2024-11-14 09:00)
PROC: 0DJD8ZZ Inspection of Lower Intestinal Tract, Via Natural or Artificial Opening Endoscopic (ICD-10-PCS; principal; 2024-11-14 09:00)
DX: R93.3 Abnormal findings on diagnostic imaging of other parts of digestive tract (principal); R10.12 Left upper quadrant pain; D50.9 Iron deficiency anemia, unspecified; D64.9 Anemia, unspecified; I48.91 Unspecified atrial fibrillation; J44.9 Chronic obstructive pulmonary disease, unspecified; I73.9 Peripheral vascular disease, unspecified; Z98.84 Bariatric surgery status; K76.0 Fatty (change of) liver, not elsewhere classified; E11.9 Type 2 diabetes mellitus without complications; E66.01 Morbid (severe) obesity due to excess calories; Z68.42 Body mass index [BMI] 45.0-49.9, adult; Z79.01 Long term (current) use of anticoagulants; Z79.899 Other long term (current) drug therapy
CPT/HCPCS: 82947; J2704; J7120